=== PATIENT | male | born 1960 | race American Indian/Alaskan Native ===

== ENCOUNTER 2018-05-11 08:13 | Emergency (ER) | payer MEDICAID, SELFPAY ==
[2018-05-11 08:21] VITALS: BP 97/81; PULSE 74; RESP 18; TEMP 36.7; O2SAT 98
--- NOTE | 2018-05-11 08:50 | ED.GENADUL ---
Disposition Clinical Impression: Chronic headache, History of brain aneurysm Disposition: HOME Condition: Stable Instructions: General Headache (ED), Nonruptured Cerebral Aneurysm (GEN) Additional Instructions: Your CAT scan today notes that you do not have any bleeding in your brain. Bleeding in your brain can be seen if you have a ruptured aneurysm. Your CAT scan on 04/23/18 noted a stable aneurysm. Drink plenty of fluids and get plenty of rest. Take your regular medications as directed. Call your neurologist and neurosurgeon at [facility] today to discuss your visit at the emergency department today and for any other recommendations. Follow-up with your scheduled appointment with neurology and neurosurgery at [facility] on 05/16/18. Return immediately to the emergency department with any worsening or new concerning symptoms. Medical Decision Making - Lab Data Laboratory Tests 05/11/18 05/11/18 09:00 09:00 WBC 3.60 L RBC 4.68 Hgb 15.3 Hct 44.0 MCV 94.0 MCH 32.7 MCHC 34.8 RDW 13.7 Plt Count 160 MPV 10.1 Immature Gran % 0.3 Neutrophils % 46.1 Lymphocytes % 41.7 Monocytes % 9.2 Eosinophils % 1.9 Basophils % 0.8 Absolute Neutrophils 1.66 Absolute Lymphocytes 1.50 Absolute Monocytes 0.33 Absolute Eosinophils 0.07 Absolute Basophils 0.03 Sodium 137 Potassium 4.2 Chloride 104 Carbon Dioxide 25.2 Anion Gap 7.8 BUN 17 Creatinine 1.16 Estimated GFR/1.73 m2 >= 60.00 Glucose 88 Calcium 8.8 - Radiology Data Radiology results: report reviewed, image reviewed CT head without contrast: Negative, no hemorrhage. - Medical Decision Making 57-year-old male with multiple ED visits for various complaints with history of R MCA brain aneurysm diagnosed on MRI MRA brain recently and followed by neurology and neurosurgery at [facility] who presents for chronic headaches for several months, worse over the past 2 weeks. Headache is similar in quality and location to previous headaches but more intense, currently 6/10. Headache is in left forehead behind left eye. Patient is also complaining of blurry vision. No focal deficits. Denies nausea and vomiting. Patient was seen here 2 weeks ago and had a CTA head and neck which noted a stable right MCA brain aneurysm. As patient has had no nausea and vomiting, and no focal deficits and appears in no acute distress, doubt rupture at this time. However due to his worsening intensity, will obtain a CT head without contrast to rule out rupture. Originally had ordered a CTA head and neck to assess if aneurysm is stable but this was discussed with radiologist Dr. Graves and recommends a CT head without contrast as the CTA with contrast would obscure bleeding if rupture is the main concern. Also doubts that in 2 weeks, the size of the aneurysm could have grown significantly. Will call [facility] neurology and neurosurgery who patient is followed by with CT head results and patient presentation. 1010 -- Labs reviewed and essentially unremarkable. Leukopenia noted but this is chronic. CT head reviewed and negative. 1025 -- Patient is requesting to go home. Patient states that his headache is much improved and he feels much better and would like to go home. Headache now 12/18. I have received a new consult note from the Epilepsy program at [facility] but assessment and plan never came through the fax machine. The consult note discusses that an MRA of the [place] noted a saccular aneurysm of right M1 segment 6 x 3 mm in diameter. I discussed with patient that I did not receive all the paperwork and have not spoken with [facility] neuro/neurosurgery regarding his visit today and he states this is not necessary and he would like to leave. Patient has a follow-up appointment with them on Wednesday for an angiogram for evaluation for a planned coiling soon. Patient states his headache today is consistent with his usual headaches and now feels much better. History of Present Illness - General Chief complaint: Headache Stated complaint: HEADACHE Time Seen by Provider: 05/11/18 08:30 Source: patient Mode of arrival: ambulatory Limitations: no limitations - History of Present Illness Initial comments: Patient is a 57-year-old male with recently diagnosed with right MCA aneurysm who presents for left-sided headache for the past 2 weeks. Patient states his brain aneurysm was found in March 2018 after an MRI and MRA brain was done due to headaches for several months. Patient states his headache for the past 2 weeks is similar in quality but more intense. Patient states is headache is currently 9/10. Last dose of Motrin and Tylenol last night without relief. Patient states his headache is located in his left forehead and behind his left eye and occasionally in his left neck. States he called his primary care doctor's office last night and they advised him to place ice to his head and neck with relief until the ice [place]. Patient also admits to bilateral blurry vision ?3 days. - Related Data Multivitamin [Multi-Vitamin Daily] 1 each PO DAILY 12/23/16 Clonazepam 1 mg PO BID PRN #60 tab-cap 04/11/18 Divalproex Sodium [Depakote] 250 mg PO TID #90 tab-cap 04/26/18 Allergies Allergy/AdvReac Type Severity Reaction Status Date / Time amitriptyline Allergy Unknown SEDATION,ra Unverified 05/11/18 08:24 sh ranitidine AdvReac Intermediate chest pain Unverified 05/11/18 08:24 acetaminophen [From Vicodin] AdvReac Mild 11/11/17 Unverified 05/11/18 08:24 chest pain upset stomach bisoprolol AdvReac Mild fatigue Unverified 05/11/18 08:24 hydrocodone bitartrate AdvReac Mild 11/11/17 Unverified 05/11/18 08:24 [From Vicodin] chest pain upset stomach nicotine polacrilex AdvReac Mild Skin Rash Unverified 05/11/18 08:24 [From Nicorette] omeprazole AdvReac Unknown Other (See Unverified 05/11/18 08:24 Comment) Review of Systems Constitutional: denies: chills, fever Eyes: vision change. denies: eye pain ENT: denies: ear pain, dental pain Respiratory: denies: cough, shortness of breath Cardiovascular: denies: chest pain, dyspnea on exertion Gastrointestinal: denies: abdominal pain, nausea, vomiting Genitourinary: denies: urgency, dysuria, frequency Musculoskeletal: denies: back pain Skin: denies: rash, lesions Neurological: headache. denies: weakness, numbness Past Medical History - Past Medical History Medical history: COPD, GERD Esophageal spasm, psychogenic nonepileptic seizures, Brain aneurysm Surgical history: other (arm surgery) Family history: CAD/[place] (mother), other (Family history of clots) - Social History Smoking status: current everyday smoker Alcohol use: rarely Drug use: none General Exam - General Limitations: no limitations General appearance: alert, in no apparent distress - Head Head exam: Present: atraumatic, normocephalic - Eye Eye exam: Present: PERRL, EOMI - ENT ENT exam: Present: normal orophraynx, mucous membranes moist, TM's normal bilaterally - Neck Neck exam: Present: normal inspection - Respiratory Respiratory exam: Present: normal lung sounds bilaterally. Absent: respiratory distress, wheezes, rales, rhonchi, stridor - Cardiovascular Cardiovascular Exam: Present: regular rate, normal rhythm. Absent: bradycardia, tachycardia - GI/Abdominal GI/Abdominal exam: Present: soft, normal bowel sounds. Absent: distended, tenderness, guarding, rebound, rigid - Extremities Exam Extremities exam: Present: full ROM - Neurological Exam Neurological exam: Present: alert, oriented X3, CN II-XII intact. Absent: motor sensory deficit - Psychiatric Psychiatric exam: Present: normal affect - Skin Skin exam: Present: warm, dry, intact Course Vital Signs - 24 hr 05/11/ 08:21 Temperature 98.1 F Pulse 74 Respiratory 18 Rate Blood Pressure 97/81 Pulse Oximetry 98
[2018-05-11 09:13] LABS: Abs Immature Grans 0.01 k/cumm (0.0-0.09); Absolute Basophil Count 0.03 k/cumm (0.0-0.2); Absolute Eosinophil Count 0.07 k/cumm (0.0-0.7); Absolute Monocyte Count 0.33 k/cumm (0.11-0.7); Absolute Neutrophil Count 1.66 k/cumm (1.2-6.7); Basophils % 0.8; Eosinophils % 1.9; HGB 15.3 g/dL (13.5-17.5); Immature Grans % 0.3; Lymphocytes % 41.7; Mean Corp. HGB Concentration 34.8 g/dL (32.0-36.0); Mean Corpuscular Hemoglobin 32.7 pg (27.0-33.0); Mean Platelet Volume 10.1 fL (8.0-11.0); Monocytes % 9.2; Neutrophils % 46.1; Platelet Count 160 x1000/uL (130-400); RBC 4.68 m/cumm (4.50-6.00); RBC Distribution Width 13.7 % (11.8-14.1)
[2018-05-11 09:25] LABS: Anion Gap 7.8 mmol/L (3-11); BUN 17 mg/dL (7-18); CO2 25.2 mmol/L (21.0-32.0); CREATININE 1.16 mg/dL (0.70-1.30); Calcium 8.8 mg/dL (8.5-10.1); Chloride 104 mmol/L (98-107); Glucose 88 mg/dL (70-100); Potassium 4.2 mmol/L (3.5-5.1); Sodium 137 mmol/L (136-145)
[2018-05-11] MEDS: Normal Saline 1,000 ML 1000 ML IV (09:25)
[2018-05-11] MEDS: Prochlorperazine 10 MG/2 ML VIAL IVP (09:26)
[2018-05-11] MEDS: Normal Saline Flush 10 ML SYR IVP (09:26)
--- NOTE | 2018-05-11 09:49 | DI.RPTCT_ITS ---
SYMPTOMS/DIAGNOSIS: LT SIDED HEADACHE, H/O BRAIN ANEURYSM, ? RUPTURE CT BRAIN: Noncontrast examination. Comparison 04/23/18. No intracranial hemorrhage, acute midline shift or mass effect is identified. The ventricles are intact. The basilar cisterns are patent. There is a normal damon/white matter differentiation. The calvarium is intact. The visualized paranasal sinuses are clear. The mastoid air cells are well pneumatized. IMPRESSION: No acute intracranial process. The findings were discussed with the emergency department on the date of the examination.
[2018-05-11 10:35] VITALS: BP 102/68; PULSE 65; RESP 16; TEMP 36.7; O2SAT 99
== END 2018-05-11 10:47 | disposition home or self-care (01) ==
PROVIDERS: Emergency Provider Physician Assistant; PCP Nurse Practitioner
DX: R51 Headache (principal); G89.29 Other chronic pain; H53.8 Other visual disturbances; I67.1 Cerebral aneurysm, nonruptured; J44.9 Chronic obstructive pulmonary disease, unspecified; F17.210 Nicotine dependence, cigarettes, uncomplicated
CPT/HCPCS: 36415; 80048; 96361; 96374; 99284; 70450; 85025; 99285; J0780

== ENCOUNTER 2018-05-22 09:18 | Emergency (ER) | payer MEDICAID, SELFPAY ==
[2018-05-22] VITALS (39 sets, daily range): BP systolic 91–135; BP diastolic 53–104; PULSE 52–83; RESP 9–44; TEMP 37.2; O2SAT 96–100
--- NOTE | 2018-05-22 09:49 | DI.RPTCT_ITS ---
SYMPTOMS/DIAGNOSIS: HEADACHE WORSE THIS AM, H/O CHRONIC HEADACHES DUE TO ANEURYSM NONCONTRAST HEAD CT: Comparison is made with 1Aug18. A small amount of fluid is seen in the inferior aspects of both mastoid air cells, unchanged. There is no evidence of bony destruction. The sinuses appear clear. No intracranial hemorrhage, mass or infarct is seen. IMPRESSION: Mild mastoid effusions. No acute intracranial abnormality.
--- NOTE | 2018-05-22 09:49 | DI.REPORT_ITS ---
SYMPTOM/DIAGNOSIS: HEADACHE, DIZZINESS, H/O BRAIN ANEURYSM, R/O ACUTE DISEASE PA AND LATERAL CHEST: Comparison is made with 18 Nov 2017,. The heart size is normal. The lungs are well inflated and clear. No infiltrate, effusion or pneumothorax is seen. IMPRESSION: Negative chest x-ray
--- NOTE | 2018-05-22 10:18 | DI.VRAD_ITS ---
EXAM: CT Head Without Intravenous Contrast EXAM DATE/TIME: 05/22/2018 9:50 AM CLINICAL HISTORY: 58 years old, male; Signs and symptoms; Other: S/P rolled l ankle, R/O acute fracture TECHNIQUE: Axial computed tomography images of the head/brain without intravenous contrast. All CT scans at this facility use at least one of these dose optimization techniques: automated exposure control; mA and/or kV adjustment per patient size (includes targeted exams where dose is matched to clinical indication); or iterative reconstruction. Coronal and sagittal reformatted images were created and reviewed. COMPARISON: CT - HEAD WITHOUT CONTRAST 2018-05-11 09:41 FINDINGS: Brain: Normal. No hemorrhage. No significant white matter disease. No edema. Ventricles: Normal. No ventriculomegaly. Bones/joints: Normal. No acute fracture. Sinuses: Normal as visualized. No acute sinusitis. Mastoid air cells: Fluid in the posterior left mastoid air cells, stable. Compatible with chronic mastoiditis. Soft tissues: Normal. IMPRESSION: 1. No acute intracranial abnormality. 2. Fluid in the posterior left mastoid air cells, stable. Compatible with chronic mastoiditis. Dictated and Authenticated by: Lissette Downs MD. Ordering:STEFAN JO MD
--- NOTE | 2018-05-22 10:22 | ED.GENADUL_ITS ---
Disposition Clinical Impression: Chronic headache, History of brain aneurysm Disposition: HOME Condition: Improving Instructions: General Headache (ED) Additional Instructions: Drink plenty of fluids and get plenty of rest. Follow-up with your scheduled appointment with neurosurgery at [facility] on 06/08. Return to the emergency department any worsening or new concerning symptoms. Medical Decision Making - Lab Data Laboratory Tests 05/22/18 05/22/18 10:35 10:35 WBC 4.18 L RBC 4.70 Hgb 15.3 Hct 44.5 MCV 94.7 MCH 32.6 MCHC 34.4 RDW 13.6 Plt Count 152 MPV 10.5 Immature Gran % 0.2 Neutrophils % 51.8 Lymphocytes % 36.8 Monocytes % 8.6 Eosinophils % 1.9 Basophils % 0.7 Absolute Neutrophils 2.17 Absolute Lymphocytes 1.54 Absolute Monocytes 0.36 Absolute Eosinophils 0.08 Absolute Basophils 0.03 Sodium 140 Potassium 4.5 Chloride 106 Carbon Dioxide 24.6 Anion Gap 9.4 BUN 18 Creatinine 1.10 Estimated GFR/1.73 m2 >= 60.00 Glucose 82 Calcium 8.9 Magnesium 1.8 Total Bilirubin 0.3 AST 12 L ALT 19 Alkaline Phosphatase 62 Troponin I < 0.02 Total Protein 7.5 Albumin 3.5 - Radiology Data Radiology results: report reviewed, image reviewed CT head w/o IV contrast: 1. No acute intracranial abnormality 2. Fluid in the posterior left mastoid air cells, stable. Compatible with chronic mastoiditis. Chest x-ray: Negative - Medical Decision Making 58-year-old male with history of brain aneurysm, seizures, coronary artery disease who presents with acute on chronic headaches today. He has had chronic headaches for several months and is being followed by [facility] neurosurgery who are planning a cranial angiogram on 06/08/18 for further evaluation and possible coiling of his aneurysm. Patient states he has a headache every day and states his headache was slightly less this morning. States his headache is chronically 5/10 and at this morning was 9/10. States his headache currently is at his baseline at 5/10. No focal deficits. Patient states he mainly came here as he was told that his aneurysm has a risk of rupture so he came here to make sure there is no rupture. Patient was seen here recently for the same complaint and was given meds and fluids in the ED and felt much better and was discharged. Patient sent for stat CT head which was negative for bleed. Remainder of labs and imaging reviewed and negative. Chest x-ray negative. This patient still with headache, will give bolus IV fluids, Compazine, Benadryl , Toradol and reassess. 1400 --patient feels much better and states he would like to go home. He denies any significant headache at this time. Patient has a ride home. He was instructed to follow-up with [facility] neurosurgery as directed and return here with any worsening symptoms. History of Present Illness - General Chief complaint: Headache Stated complaint: HEADACHE Time Seen by Provider: 05/22/18 09:46 Source: patient Mode of arrival: ambulatory Limitations: no limitations - History of Present Illness Initial comments: Patient is a 58-year-old male with well-known history of brain aneurysm determined a few months ago has daily headaches who presents with worsening headache this morning. Patient states his headache is in the same location and quality as usual but more intense this morning. Headache is in his frontal region, slightly worse on left today. Patient states headache started worsening after a cup of coffee this morning. States the headache is 9/10 at its worst and currently 5/10. Patient is being followed at [facility] neurosurgery and had a recent appointment for a cranial angiogram but this was rescheduled due to the castro that was supposed to do it broke his hand for 06/08/18. Patient has been eating and drinking well. He admits to chronic blurry vision over several months states is no worse than usual. He denies any nausea or vomiting. - Related Data Multivitamin [Multi-Vitamin Daily] 1 each PO DAILY 12/23/16 Clonazepam 1 mg PO BID PRN #60 tab-cap 04/11/18 Divalproex Sodium [Depakote] 250 mg PO TID #90 tab-cap 04/26/18 Ibuprofen 800 mg PO PRN PRN 05/22/18 Allergies Allergy/AdvReac Type Severity Reaction Status Date / Time amitriptyline Allergy Unknown SEDATION,ra Unverified 05/22/18 09:45 sh ranitidine AdvReac Intermediate chest pain Unverified 05/22/18 09:45 acetaminophen [From Vicodin] AdvReac Mild 11/11/17 Unverified 05/22/18 09:45 chest pain upset stomach bisoprolol AdvReac Mild fatigue Unverified 05/22/18 09:45 hydrocodone bitartrate AdvReac Mild 11/11/17 Unverified 05/22/18 09:45 [From Vicodin] chest pain upset stomach nicotine polacrilex AdvReac Mild Skin Rash Unverified 05/22/18 09:45 [From Nicorette] omeprazole AdvReac Unknown Other (See Unverified 05/22/18 09:45 Comment) Review of Systems Constitutional: denies: chills, fever Eyes: denies: eye pain ENT: denies: ear pain, dental pain Respiratory: denies: cough, shortness of breath Cardiovascular: denies: chest pain, dyspnea on exertion Gastrointestinal: denies: abdominal pain, nausea, vomiting Genitourinary: denies: urgency, dysuria, frequency Musculoskeletal: denies: back pain Skin: denies: rash, lesions Neurological: headache. denies: weakness, numbness Past Medical History - Past Medical History Medical history: COPD, GERD Esophageal spasm, psychogenic nonepileptic seizures, Brain aneurysm Surgical history: other (arm surgery) Family history: CAD/[place] (mother), other (Family history of clots) - Social History Smoking status: current everyday smoker Alcohol use: rarely Drug use: none General Exam - General Limitations: no limitations General appearance: alert, in no apparent distress - Eye Eye exam: Present: PERRL, EOMI - ENT ENT exam: Present: mucous membranes moist - Neck Neck exam: Present: normal inspection - Respiratory Respiratory exam: Present: normal lung sounds bilaterally. Absent: respiratory distress, wheezes, rales, rhonchi, stridor - Cardiovascular Cardiovascular Exam: Present: regular rate, normal rhythm. Absent: bradycardia , tachycardia - GI/Abdominal GI/Abdominal exam: Present: soft, normal bowel sounds. Absent: distended, tenderness, guarding, rebound, rigid - Neurological Exam Neurological exam: Present: alert, oriented X3, CN II-XII intact, other (Muscle strength 5/5 bilateral upper and lower extremities.). Absent: motor sensory deficit - Psychiatric Psychiatric exam: Present: normal affect - Skin Skin exam: Present: warm, dry, intact Course Vital Signs - 24 hr 05/22/18 05/22/18 05/22/18 09:38 09:50 09:51 Temperature 99.0 F Pulse 83 75 Respiratory 15 21 23 Rate Blood Pressure 123/80 121/63 Pulse Oximetry 100 98 97
--- NOTE | 2018-05-22 10:31 | DI.VRAD_ITS ---
EXAM: XR Chest, 2 Views EXAM DATE/TIME: 05/22/2018 9:50 AM CLINICAL HISTORY: 58 years old, male; Signs and symptoms; Other: Headache, dizziness, h/o brain aneurysm, R/O acute disease TECHNIQUE: XR of the chest, 2 views. COMPARISON: CR - CHEST 2 VIEWS PA,LAT 2017-11-18 14:20 FINDINGS: Lungs: Unremarkable. No consolidation. Pleural space: Unremarkable. No pleural effusion. No pneumothorax. Heart/Mediastinum: Unremarkable. No cardiomegaly. Bones/joints: Unremarkable for patient's age. IMPRESSION: No acute findings. Dictated and Authenticated by: Lissette Downs MD. Ordering:STEFAN JO MD
[2018-05-22] MEDS: Normal Saline 1,000 ML 1000 ML IV (10:42)
[2018-05-22 10:43] LABS: Abs Immature Grans 0.01 k/cumm (0.0-0.09); Absolute Basophil Count 0.03 k/cumm (0.0-0.2); Absolute Eosinophil Count 0.08 k/cumm (0.0-0.7); Absolute Lymphocyte Count 1.54 k/cumm (1.2-3.4); Absolute Monocyte Count 0.36 k/cumm (0.11-0.7); Absolute Neutrophil Count 2.17 k/cumm (1.2-6.7); Basophils % 0.7; Eosinophils % 1.9; HCT 44.5 % (40.0-50.0); HGB 15.3 g/dL (13.5-17.5); Immature Grans % 0.2; Lymphocytes % 36.8; Mean Corp. HGB Concentration 34.4 g/dL (32.0-36.0); Mean Corpuscular Hemoglobin 32.6 pg (27.0-33.0); Mean Corpuscular Volume 94.7 fL (80-95); Mean Platelet Volume 10.5 fL (8.0-11.0); Monocytes % 8.6; Neutrophils % 51.8; Platelet Count 152 x1000/uL (130-400); RBC Distribution Width 13.6 % (11.8-14.1); White Blood Cell Count 4.18 k/cumm (4.4-10.8)
[2018-05-22 10:59] LABS: ALT 19 U/L (12-78); AST 12 U/L (15-37); Albumin 3.5 g/dL (3.4-5.0); Alkaline Phosphatase 62 U/L (46-116); Anion Gap 9.4 mmol/L (3-11); BUN 18 mg/dL (7-18); Bilirubin, Total 0.3 mg/dL (0.2-1.0); CO2 24.6 mmol/L (21.0-32.0); Calcium 8.9 mg/dL (8.5-10.1); Chloride 106 mmol/L (98-107); Glucose 82 mg/dL (70-100); Magnesium 1.8 mg/dL (1.8-2.4); Potassium 4.5 mmol/L (3.5-5.1); Sodium 140 mmol/L (136-145); Total Protein 7.5 g/dL (6.4-8.2); Troponin I < 0.02 ng/mL (0.00-0.06)
[2018-05-22] MEDS: Ketorolac 30 MG/ML VIAL IVP (11:43)
[2018-05-22] MEDS: diphenhydrAMINE 50 MG/ML VIAL 25 MG IVP (11:44)
[2018-05-22] MEDS: Prochlorperazine 10 MG/2 ML VIAL IVP (11:47)
[2018-05-22] MEDS: Normal Saline 50 ML 100 ML (11:47)
== END 2018-05-22 14:04 | disposition home or self-care (01) ==
PROVIDERS: Emergency Provider Physician Assistant; PCP Nurse Practitioner
DX: R51 Headache (principal); G89.29 Other chronic pain; I67.1 Cerebral aneurysm, nonruptured; J44.9 Chronic obstructive pulmonary disease, unspecified; F17.210 Nicotine dependence, cigarettes, uncomplicated
CPT/HCPCS: 36415; 80053; 96361; 96374; 96375; 99284; 70450; 71046; 83735; 84484; 85025; J0780; J1200; J1885

== ENCOUNTER → 2018-06-07 09:39 | Outpatient (CLI) | payer MEDICAID, SELFPAY ==
--- NOTE | 2018-06-07 09:50 | DI.REPORT_ITS ---
SYMPTOM/DIAGNOSIS: PREOP, SMOKER, Z01.818 PA AND LATERAL CHEST: Comparison is made with 05/22/18. The heart is normal in size. The lungs are clear. The mediastinal structures and pleura appear intact. CONCLUSION: Normal chest.
[2018-06-07 10:06] LABS: Absolute Basophil Count 0.05 k/cumm (0.0-0.2); Absolute Eosinophil Count 0.06 k/cumm (0.0-0.7); Absolute Lymphocyte Count 1.58 k/cumm (1.2-3.4); Absolute Monocyte Count 0.36 k/cumm (0.11-0.7); Absolute Neutrophil Count 1.51 k/cumm (1.2-6.7); Basophils % 1.4; Eosinophils % 1.7; HCT 44.1 % (40.0-50.0); Lymphocytes % 44.4; Mean Corpuscular Hemoglobin 32.1 pg (27.0-33.0); Mean Corpuscular Volume 94.4 fL (80-95); Monocytes % 10.1; Neutrophils % 42.4; Platelet Count 169 x1000/uL (130-400); RBC 4.67 m/cumm (4.50-6.00); RBC Distribution Width 13.3 % (11.8-14.1); White Blood Cell Count 3.56 k/cumm (4.4-10.8)
[2018-06-07 10:22] LABS: VALPROIC ACID 37.1 ug/mL (50-100)
[2018-06-07 10:39] LABS: Prothrombin Time 9.3 sec (9.3-10.8)
[2018-06-07 11:25] LABS: Anion Gap 5.9 mmol/L (3-11); BUN 15 mg/dL (7-18); CO2 27.1 mmol/L (21.0-32.0); CREATININE 1.08 mg/dL (0.70-1.30); Calcium 9.1 mg/dL (8.5-10.1); Chloride 104 mmol/L (98-107); Glucose 74 mg/dL (70-100); Potassium 4.4 mmol/L (3.5-5.1); Sodium 137 mmol/L (136-145)
== END ==
PROVIDERS: PCP Nurse Practitioner; Visit Provider Nurse Practitioner
DX: Z01.818 Encounter for other preprocedural examination (principal); R79.9 Abnormal finding of blood chemistry, unspecified; R07.89 Other chest pain; F17.200 Nicotine dependence, unspecified, uncomplicated; G40.909 Epilepsy, unspecified, not intractable, without status epilepticus; Z51.81 Encounter for therapeutic drug level monitoring; Z79.899 Other long term (current) drug therapy
CPT/HCPCS: 36415; 80048; 71046; 80164; 85025; 85610

== ENCOUNTER 2018-06-08 16:34 | Emergency (ER) | payer MEDICAID, SELFPAY ==
[2018-06-08] VITALS (8 sets, daily range): BP systolic 110–134; BP diastolic 72–74; PULSE 68–85; RESP 10–19; TEMP 36.6; O2SAT 97–98
--- NOTE | 2018-06-08 16:52 | ED.FU_ITS ---
Care Signed Out By:: Wild - Vital Signs Recent Vitals - 8H: Vital Signs - 8 hr 06/08/18 16:40 Temperature 36.6 C Pulse 85 Respiratory 18 Rate Blood Pressure 134/74 Pulse Oximetry 98 - Continuation of Care Continuation of Care Plan: EKG 16:43 Rate 74, intervals normal, sinus rhythm, no ST elevations or depression. No T- wave inversions. 1 mm Q-wave in lead II, III, and aVF. These findings are consistent with prior EKG from 06/07/18. No acute changes.
--- NOTE | 2018-06-08 17:02 | ED.GENADUL ---
Disposition Clinical Impression: Chest pain, atypical Disposition: HOME Condition: Fair Instructions: Chest Pain (ED) Additional Instructions: Encourage hydration. Stop smoking. Please follow-up with primary care within the next week for reevaluation. If you develop new or worsening symptoms please seek care urgently once again. Keep upcoming appointments Referrals: Wendi Bazzi NP [Primary Care Provider] - Medical Decision Making - Lab Data Laboratory Tests 06/08/18 06/08/18 17:05 17:05 WBC 3.96 L RBC 4.44 L Hgb 14.4 Hct 41.5 MCV 93.5 MCH 32.4 MCHC 34.7 RDW 13.2 Plt Count 166 MPV 9.9 Immature Gran % 0.0 Neutrophils % 48.3 Lymphocytes % 37.6 Monocytes % 11.1 Eosinophils % 2.0 Basophils % 1.0 Absolute Neutrophils 1.91 Absolute Lymphocytes 1.49 Absolute Monocytes 0.44 Absolute Eosinophils 0.08 Absolute Basophils 0.04 Sodium 134 L Potassium 3.5 Chloride 103 Carbon Dioxide 25.6 Anion Gap 5.4 BUN 12 Creatinine 0.99 Estimated GFR/1.73 m2 >= 60.00 Glucose 103 H Calcium 8.6 Magnesium 1.7 L Total Bilirubin 0.6 AST 16 ALT 20 Alkaline Phosphatase 59 Troponin I < 0.02 Total Protein 7.2 Albumin 3.3 L Results reviewed for labs ordered during visit: Yes - Medical Decision Making Patient is presenting today with chief complaint of tingling. Patient reports that this tingling has been going on for the past several years and has waxed and waned. Is not easily reproducible. He reports is unchanged today. However, he was concerned that he had severe left anterior chest pain that lasted for approximately 20 minutes this morning. He was sedentary the time the pain arrived. He did not experience shortness of breath. Pain does not radiate to the back. Rather, he reports the pain radiated up towards the left upper extremity. Cardiac and neuro exams are normal on today's visit. No acute abnormality is noted. Lungs are clear in all aguirre. We will obtain laboratory evaluation including troponin. We will also obtain the echo that was performed today. Patient did have a chest x-ray yesterday without acute abnormality. I do not feel that repeating this today is necessary. EKG was obtained and reviewed by Dr. Alston. He was able to compare this to previous and no acute abnormality was noted, no findings to suggest acute ischemia. Please review his note for further information. Echo report performed today was obtained from [facility]. Summary is as follows: Left ventricle: Cavity was normal size. Wall thickness was normal. Systolic function was normal. The estimated EF is 55-60%. Wall motion was normal, there is no regional wall motion abnormalities. Right ventricle: Cavity size was normal. Wall thickness was normal. Systolic function was normal. Laboratory data evaluation without significant abnormality. His white count was noted to be slightly low but this is unchanged from previous visits. Troponin is less than 0.02. As it has been several hours since his episode of chest pain, do not feel that repeating troponin is necessary at this point. Pain is also easily reproducible with pain over the fifth and sixth ribs at the sternoclavicular junction. I did advise that this may be musculoskeletal. I encouraged hydration. Advised Tylenol as needed for discomfort. Advise follow-up with primary care. We discussed new/worsening symptoms when to seek care urgently once again. All his questions and concerns were addressed and he is in agreement with this plan. History of Present Illness - General Chief complaint: GenMedical Stated complaint: CALEX Time Seen by Provider: 06/08/18 16:40 Source: patient, RN notes reviewed Mode of arrival: EMS Limitations: no limitations - History of Present Illness Initial comments: Patient is a 58-year-old male, well-known to the department, with chief complaint of tingling. Patient is brought in via EMS. Patient has history of anxiety, seizure disorder, tobacco abuse, GERD, atypical chest pain, CAD, COPD, trachea spasms, brain aneurysm. Patient is not anticoagulated. Reports that he has had this tingling waxing and waning for the past several years. Tingling remains unchanged. Reports is primarily in his cheeks, hands, arms and occasionally in his feet. States that he can come on with exertion or when at rest. He does not have any pain associated with this. Reports that it feels like when you are out in the real cold for a long time. Denies any acute change in this tingling sensation. Reports that he also called EMS this morning after having sudden severe left anterior chest pain. States that this chest pain radiated towards the left arm. Reports that the pain came on while he was sedentary. He reports that he checked his oxygen which was 98% at that time, heart rate was in the 1 teens and blood pressure is noted to be 137/89. Reports that the blood pressure had a very concerned as this is higher than his typical. He denies any shortness of breath. He denies any chest pain currently. She went for an echo at [facility] today. Did not experience any chest pain throughout the rest the course of the day. Patient has had extensive medical workups including brain MRI, multiple cardiac workups. Patient is scheduled for clipping of brain aneurysm. It was for this upcoming procedure that he underwent the echocardiogram today. He denies any cough. Reports that his cough has been decreasing as he is cutting back on smoking. He denies any fevers or chills. States that he has chronic nausea but denies any abdominal pain. - Related Data Multivitamin [Multi-Vitamin Daily] 1 each PO DAILY 12/23/16 Clonazepam 1 mg PO BID PRN #60 tab-cap 04/11/18 Divalproex Sodium [Depakote] 250 mg PO TID #90 tab-cap 04/26/18 Ibuprofen 800 mg PO PRN PRN 05/22/18 Allergies Allergy/AdvReac Type Severity Reaction Status Date / Time amitriptyline Allergy Unknown SEDATION,ra Unverified 06/08/18 16:42 sh ranitidine AdvReac Intermediate chest pain Unverified 06/08/18 16:42 acetaminophen [From Vicodin] AdvReac Mild 11/11/17 Unverified 06/08/18 16:42 chest pain upset stomach bisoprolol AdvReac Mild fatigue Unverified 06/08/18 16:42 hydrocodone bitartrate AdvReac Mild 11/11/17 Unverified 06/08/18 16:42 [From Vicodin] chest pain upset stomach nicotine polacrilex AdvReac Mild Skin Rash Unverified 06/08/18 16:42 [From Nicorette] omeprazole AdvReac Unknown Other (See Unverified 06/08/18 16:42 Comment) Review of Systems Constitutional: no symptoms reported Eyes: denies: vision change Respiratory: see HPI, cough (Chronic, improving). denies: shortness of breath, SOB with excertion Cardiovascular: as per HPI, chest pain. denies: palpitations, dyspnea on exertion, syncope Gastrointestinal: as per HPI Musculoskeletal: denies: back pain Skin: denies: rash Neurological: as per HPI, paresthesias (Tingling as described in HPI). denies: headache Past Medical History - Past Medical History Medical history: COPD, GERD Esophageal spasm, psychogenic nonepileptic seizures, Brain aneurysm Surgical history: other (arm surgery) Psychiatric history: anxiety Family history: CAD/UT (mother), other (Family history of clots) - Social History Smoking status: current everyday smoker Alcohol use: rarely Drug use: none General Exam - General Limitations: no limitations General appearance: alert, in no apparent distress - Head Head exam: Present: atraumatic - Eye Eye exam: Present: normal apperance, PERRL, EOMI. Absent: scleral icterus, conjunctival injection, nystagmus Pupils: Present: normal accommodation - ENT ENT exam: Present: normal exam, normal orophraynx, mucous membranes dry - Respiratory Respiratory exam: Present: normal lung sounds bilaterally, chest wall tenderness (Reproducible chest wall tenderness at the sternoclavicular junction between the fifth and sixth ribs.). Absent: respiratory distress, wheezes, rales, rhonchi, accessory muscle use - Cardiovascular Cardiovascular Exam: Present: regular rate, normal rhythm, normal heart sounds - GI/Abdominal GI/Abdominal exam: Present: soft, normal bowel sounds. Absent: distended, tenderness, guarding, rebound - Rectal Rectal exam: Present: deferred - Extremities Exam Extremities exam: Present: normal inspection (5 out of 5 strength equal bilaterally in both the upper and lower extremities. Sensation remains intact in the upper extremities and lower. No saddle paresthesias. 2+ distal pulses in both the upper and lower extremities, equal bilaterally), normal capillary refill. Absent: pedal edema, calf tenderness - Back Exam Back exam: Present: normal inspection - Neurological Exam Neurological exam: Present: alert, CN II-XII intact, normal gait, reflexes normal. Absent: motor sensory deficit - Psychiatric Psychiatric exam: Present: normal affect, normal mood - Skin Skin exam: Present: warm, dry, normal color Course Vital Signs - 24 hr 06/08/18 16:40 Temperature 36.6 C Pulse 85 Respiratory 18 Rate Blood Pressure 134/74 Pulse Oximetry 98
[2018-06-08 17:10] LABS: Absolute Basophil Count 0.04 k/cumm (0.0-0.2); Absolute Eosinophil Count 0.08 k/cumm (0.0-0.7); Absolute Lymphocyte Count 1.49 k/cumm (1.2-3.4); Absolute Monocyte Count 0.44 k/cumm (0.11-0.7); Absolute Neutrophil Count 1.91 k/cumm (1.2-6.7); HCT 41.5 % (40.0-50.0); HGB 14.4 g/dL (13.5-17.5); Lymphocytes % 37.6; Mean Corp. HGB Concentration 34.7 g/dL (32.0-36.0); Mean Corpuscular Hemoglobin 32.4 pg (27.0-33.0); Mean Corpuscular Volume 93.5 fL (80-95); Mean Platelet Volume 9.9 fL (8.0-11.0); Monocytes % 11.1; Neutrophils % 48.3; Platelet Count 166 x1000/uL (130-400); RBC 4.44 m/cumm (4.50-6.00); RBC Distribution Width 13.2 % (11.8-14.1); White Blood Cell Count 3.96 k/cumm (4.4-10.8)
[2018-06-08] MEDS: Normal Saline 1,000 ML 150 ML IV (17:15)
[2018-06-08 17:26] LABS: ALT 20 U/L (12-78); AST 16 U/L (15-37); Albumin 3.3 g/dL (3.4-5.0); Alkaline Phosphatase 59 U/L (46-116); Anion Gap 5.4 mmol/L (3-11); BUN 12 mg/dL (7-18); Bilirubin, Total 0.6 mg/dL (0.2-1.0); CO2 25.6 mmol/L (21.0-32.0); CREATININE 0.99 mg/dL (0.70-1.30); Calcium 8.6 mg/dL (8.5-10.1); Chloride 103 mmol/L (98-107); Glucose 103 mg/dL (70-100); Magnesium 1.7 mg/dL (1.8-2.4); Potassium 3.5 mmol/L (3.5-5.1); Sodium 134 mmol/L (136-145); Total Protein 7.2 g/dL (6.4-8.2)
[2018-06-08 17:28] LABS: Troponin I < 0.02 ng/mL (0.00-0.06)
== END 2018-06-08 17:45 | disposition home or self-care (01) ==
PROVIDERS: Physician Assistant; Emergency Provider Student in an Organized Health Care Education/Training Program; PCP Nurse Practitioner
DX: R07.89 Other chest pain (principal); J44.9 Chronic obstructive pulmonary disease, unspecified; F17.210 Nicotine dependence, cigarettes, uncomplicated
CPT/HCPCS: 36415; 80053; 93005; 99284; 83735; 84484; 85025; 93010

== ENCOUNTER 2018-07-21 12:01 | Emergency (ER) | payer MEDICAID, SELFPAY ==
[2018-07-21 12:05] VITALS: BP 124/71; PULSE 71; RESP 16; TEMP 37.1; O2SAT 124
--- NOTE | 2018-07-21 12:22 | DI.CT_ITS ---
SYMPTOMS/DIAGNOSIS: HEADACHES S/P RECENT ANEURYSM CLIPPED IN CTA OF THE HEAD: CT angiography was performed with multi slice acquisition and multi planar and 3D reconstruction. Comparison is made with April,. The distal internal carotid arteries and vertebral basilar arteries are unremarkable. The patient is status post aneurysm clipping of the previously noted right MCA aneurysm since the previous exam. High density material is seen in this area, creating mild artifact. There is no evidence of vascular occlusion or dissection. There is no contrast extravasation. The patient is now status post right frontal craniotomy. There is a small fluid collection just deep to the craniotomy, measuring 6 mm in thickness. An air bubble is seen within the collection. IMPRESSION: Status post right MCA aneurysm clipping. The aneurysm is not visible. There is a small fluid collection beneath the right frontal craniotomy site containing air. There are no findings specific for infection. NONCONTRAST HEAD CT: Comparison is made with May,. The patient is now status post right frontal craniotomy. The patient is status post right MCA aneurysm clipping. A metallic density is seen in this area. There is residual subdural fluid collection and residual amount of adjacent air in the area of the craniotomy. the collection measures 6mm in thickness by 6cm by 6cm in cephalocaudal and AP dimensions. There is no significant mass effect. No intracranial hemorrhage is seen. IMPRESSION: Small subdural fluid collection in the area of the recent craniotomy. A small amount of air is seen within the fluid collection.
[2018-07-21 12:24] VITALS: BP 107/71; PULSE 68; RESP 16; TEMP 36.8; O2SAT 96
--- NOTE | 2018-07-21 12:29 | W.ED.GENAD ---
Discharge Plan Disposition Patient Disposition: [facility] Condition: Stable Discharge Details Chief Complaint: GenMedical Clinical Impression: Pneumocephalus Primary Care Provider: Wendi Bazzi ED Provider: Clay Chavira Home Meds and New Rx's Prescriptions: No Action multivitamin [Daily Multi-Vitamin] 1 EACH tablet 1 ea PO DAILY RF: 0 clonazepam 1 MG tablet 1 mg PO BID PRNQty: 60 RF: 2 divalproex [Depakote] 250 MG tablet,delayed release (DR/EC) 250 mg PO TID Qty: 90 RF: 3 ibuprofen 800 MG tablet 800 mg PO PRN PRNRF: 0 Discharge Data Discharge Date/Time-TO BE ENTERED AT DEPARTURE: 07/21/18 15:24 Medical Decision Making 58 yo male who underwent brain aneurysm clipping at [facility] in early June comes in with headache and right tmj pain. He has had the pain since the surgery as well as weankess. denies fevers or chills, no vomit. Has no focal neuro deficits on exam, NIH of 0 at this time though is unstead with walking since the surgery. Has full rom of the jaw on exam with no swelling or redness, could have tmj disorder, no evidence of infection, rpa, captain fishing vessel, ludwigs. will image his head to eval for sah or other pathology. no fevers or neck stiffness to suggest ekg manager infection pt remains stable, ct head shows small fluid collection and air pocket per radiology near craniotomy site and cta shows no acute findings. Will discuss case with pt's neurosurgery team spoke with Dr. slaughter from neurosugery who would like the pt transferred to the ED at [facility] for neurosurgery eval. pt remains stable Differential Diagnosis chronic headaches, sah, post surgical pain HPI General Mode of arrival: EMS. Date/Time Provider Initiated Documentation: 07/21/18 12:04. Limitations to Documentation: no limitations. Information obtained by: patient. History of Present Illness 58 year old M presents to the emergency department with the chief complaint of headache and jaw pain, described as moderate, with intensity rated at 4. Quality is described as aching, and is localized to the head. Patient reports no radiation. Patient started experiencing this month(s) (1) and it has been constant. No relieving factors improve symptom(s), No exacerbating factors reported . Patient did receive the following treatments prior to arrival, none Related Data Home Medications Medication Instructions Recorded Confirmed multivitamin [Daily Multi-Vitamin] 1 ea PO DAILY 12/23/16 07/21/18 clonazepam 1 mg PO BID PRN #60 tab-cap 04/11/18 07/21/18 divalproex [Depakote] 250 mg PO TID #90 tab-cap 04/26/18 07/21/18 ibuprofen 800 mg PO PRN PRN 05/22/18 07/21/18 Previous Rx's Medication Instructions Recorded divalproex [Depakote] 250 mg PO TID #90 tab-cap 04/26/18 Allergies Allergy/AdvReac Type Severity Reaction Status Date / Time amitriptyline Allergy Unknown SEDATION,ra Unverified 07/21/18 12:11 sh ranitidine AdvReac Intermediate chest pain Unverified 07/21/18 12:11 acetaminophen [From Vicodin] AdvReac Mild 11/11/17 Unverified 07/21/18 12:11 chest pain upset stomach bisoprolol AdvReac Mild fatigue Unverified 07/21/18 12:11 hydrocodone bitartrate AdvReac Mild 11/11/17 Unverified 07/21/18 12:11 [From Vicodin] chest pain upset stomach nicotine polacrilex AdvReac Mild Skin Rash Unverified 07/21/18 12:11 [From Nicorette] omeprazole AdvReac Unknown Other (See Unverified 07/21/18 12:11 Comment) General Stated Complaint: GenMedical DEVEN: 3 Review of Systems Review of Systems All systems reviewed & are unremarkable except as noted in HPI and below Constitutional Denies chills and Denies fever(s) Eyes Denies loss of vision ENT Denies change in voice Cardiovascular Denies chest pain and Denies dyspnea Respiratory Denies dyspnea Gastrointestinal Denies abdominal pain, Denies nausea and Denies vomiting Genitourinary Denies dysuria Musculoskeletal Denies joint swelling Integumentary/Breasts Denies rash Neurologic Denies loss of vision Psychiatric Denies depression Endocrine Denies cold intolerance and Denies heat intolerance Allergic/Immunologic Reports urticaria PFSH Family History Grandmother Diabetes Mother No problems noted. Father No problems noted. Medical History Testicular mass (Chronic) Disequilibrium (Acute) Cerebral aneurysm (Resolved) Nonerosive esophageal reflux disease Seizure disorder Tobacco use disorder Social History Smoking/Tobacco Use Status: Current every day Surgical History S/P craniotomy (Resolved) EGD (01/21/17) EGD - IV Sedation (05/24/15) EGD [facility] (01/05/18) Removal of foreign body (02/09/10) Repair of inguinal hernia (10/10/67) colonoscopy with cold biopsy (01/21/17) Exam Const General: no acute distress Orientation: alert [facility] Head: other (scalp incision from surgery that is well healed without evidence of erythema or drainage and no pain on exam) Ears: external ears normal General nose exam: external nose normal Mouth: moist mucous membranes Eyes General: appearance normal, both eyes and all related structures Neck Neck: normal visual inspection Resp Effort & Inspection: normal respiratory effort and able to speak in complete sentences Cardio Rate: regular rate Skin General skin exam: no rashes or lesions noted Neuro General: alert and oriented x3 Cognition: normal cognition Speech: speech normal Gait: normal gait Motor: muscle tone normal throughout Sensory Exam: no sensory deficits noted Extrem General: normal to inspection Psych Mental Status: mental status grossly normal Course Vital Signs Temperature 37.1 C 07/21/18 12:05 Pulse 71 07/21/18 12:05 Respiratory Rate 16 07/21/18 12:05 Blood Pressure 124/71 07/21/18 12:05 Pulse Oximetry 124 H 07/21/18 12:05 Temperature 36.8 C 07/21/18 12:24 Temperature Source Temporal Artery Scan 07/21/18 12:24 Pulse 68 07/21/18 12:24 Respiratory Rate 16 07/21/18 12:24 Respiratory Effort Non-Labored 07/21/18 12:14 Respiratory Depth Normal 07/21/18 12:14 Respiratory Pattern Normal 07/21/18 12:14 Blood Pressure 107/71 07/21/18 12:24 Pulse Oximetry 96 07/21/18 12:24 Oxygen Delivery Method Room Air 07/21/18 12:24 Oxygen Flow Rate 0 07/21/18 12:24 Pain Level 9 07/21/18 12:05
--- NOTE | 2018-07-21 12:34 | ED.GENADUL_ITS ---
Discharge Plan Disposition Patient Disposition: [facility] Condition: Stable Discharge Details Chief Complaint: GenMedical Clinical Impression: Pneumocephalus Primary Care Provider: Wendi Bazzi ED Provider: Clay Chavira Home Meds and New Rx's Prescriptions: No Action multivitamin [Daily Multi-Vitamin] 1 EACH tablet 1 ea PO DAILY RF: 0 clonazepam 1 MG tablet 1 mg PO BID PRNQty: 60 RF: 2 divalproex [Depakote] 250 MG tablet,delayed release (DR/EC) 250 mg PO TID Qty: 90 RF: 3 ibuprofen 800 MG tablet 800 mg PO PRN PRNRF: 0 Discharge Data Discharge Date/Time-TO BE ENTERED AT DEPARTURE: 07/21/18 15:24 Medical Decision Making 58 yo male who underwent brain aneurysm clipping at [facility] in early June comes in with headache and right tmj pain. He has had the pain since the surgery as well as weankess. denies fevers or chills, no vomit. Has no focal neuro deficits on exam, NIH of 0 at this time though is unstead with walking since the surgery. Has full rom of the jaw on exam with no swelling or redness, could have tmj disorder, no evidence of infection, rpa, head bellhop captain, ludwigs. will image his head to eval for sah or other pathology. no fevers or neck stiffness to suggest box office attendant infection pt remains stable, ct head shows small fluid collection and air pocket per radiology near craniotomy site and cta shows no acute findings. Will discuss case with pt's neurosurgery team spoke with Dr. slaughter from neurosugery who would like the pt transferred to the ED at [facility] for neurosurgery eval. pt remains stable Differential Diagnosis chronic headaches, sah, post surgical pain HPI General Mode of arrival: EMS . Date/Time Provider Initiated Documentation: 07/21/18 12:04 . Limitations to Documentation: no limitations . Information obtained by: patient . History of Present Illness 58 year old M presents to the emergency department with the chief complaint of headache and jaw pain, described as moderate, with intensity rated at 4. Quality is described as aching, and is localized to the head. Patient reports no radiation. Patient started experiencing this month(s) (1) and it has been constant. No relieving factors improve symptom(s), No exacerbating factors reported . Patient did receive the following treatments prior to arrival, none Related Data Home Medications Medication Instructions Recorded Confirmed multivitamin [Daily Multi-Vitamin] 1 ea PO DAILY 12/23/16 07/21/18 clonazepam 1 mg PO BID PRN #60 tab-cap 04/11/18 07/21/18 divalproex [Depakote] 250 mg PO TID #90 tab-cap 04/26/18 07/21/18 ibuprofen 800 mg PO PRN PRN 05/22/18 07/21/18 Previous Rx's Medication Instructions Recorded divalproex [Depakote] 250 mg PO TID #90 tab-cap 04/26/18 Allergies Allergy/AdvReac Type Severity Reaction Status Date / Time amitriptyline Allergy Unknown SEDATION,ra Unverified 07/21/18 12:11 sh ranitidine AdvReac Intermediate chest pain Unverified 07/21/18 12:11 acetaminophen [From Vicodin] AdvReac Mild 11/11/17 Unverified 07/21/18 12:11 chest pain upset stomach bisoprolol AdvReac Mild fatigue Unverified 07/21/18 12:11 hydrocodone bitartrate AdvReac Mild 11/11/17 Unverified 07/21/18 12:11 [From Vicodin] chest pain upset stomach nicotine polacrilex AdvReac Mild Skin Rash Unverified 07/21/18 12:11 [From Nicorette] omeprazole AdvReac Unknown Other (See Unverified 07/21/18 12:11 Comment) General Stated Complaint: GenMedical DEVEN: 3 Review of Systems Review of Systems All systems reviewed & are unremarkable except as noted in HPI and below Constitutional Denies chills and Denies fever(s) Eyes Denies loss of vision ENT Denies change in voice Cardiovascular Denies chest pain and Denies dyspnea Respiratory Denies dyspnea Gastrointestinal Denies abdominal pain, Denies nausea and Denies vomiting Genitourinary Denies dysuria Musculoskeletal Denies joint swelling Integumentary/Breasts Denies rash Neurologic Denies loss of vision Psychiatric Denies depression Endocrine Denies cold intolerance and Denies heat intolerance Allergic/Immunologic Reports urticaria PFSH Family History Grandmother Diabetes Mother No problems noted. Father No problems noted. Medical History Testicular mass (Chronic) Disequilibrium (Acute) Cerebral aneurysm (Resolved) Nonerosive esophageal reflux disease Seizure disorder Tobacco use disorder Social History Smoking/Tobacco Use Status: Current every day Surgical History S/P craniotomy (Resolved) EGD (01/21/17) EGD - IV Sedation (05/24/15) EGD [facility] (01/05/18) Removal of foreign body (02/09/10) Repair of inguinal hernia (10/10/67) colonoscopy with cold biopsy (01/21/17) Exam Const General: no acute distress Orientation: alert [facility] Head: other (scalp incision from surgery that is well healed without evidence of erythema or drainage and no pain on exam) Ears: external ears normal General nose exam: external nose normal Mouth: moist mucous membranes Eyes General: appearance normal, both eyes and all related structures Neck Neck: normal visual inspection Resp Effort & Inspection: normal respiratory effort and able to speak in complete sentences Cardio Rate: regular rate Skin General skin exam: no rashes or lesions noted Neuro General: alert and oriented x3 Cognition: normal cognition Speech: speech normal Gait: normal gait Motor: muscle tone normal throughout Sensory Exam: no sensory deficits noted Extrem General: normal to inspection Psych Mental Status: mental status grossly normal Course Vital Signs Temperature 37.1 C 07/21/18 12:05 Pulse 71 07/21/18 12:05 Respiratory Rate 16 07/21/18 12:05 Blood Pressure 124/71 07/21/18 12:05 Pulse Oximetry 124 H 07/21/18 12:05 Temperature 36.8 C 07/21/18 12:24 Temperature Source Temporal Artery Scan 07/21/18 12:24 Pulse 68 07/21/18 12:24 Respiratory Rate 16 07/21/18 12:24 Respiratory Effort Non-Labored 07/21/18 12:14 Respiratory Depth Normal 07/21/18 12:14 Respiratory Pattern Normal 07/21/18 12:14 Blood Pressure 107/71 07/21/18 12:24 Pulse Oximetry 96 07/21/18 12:24 Oxygen Delivery Method Room Air 07/21/18 12:24 Oxygen Flow Rate 0 07/21/18 12:24 Pain Level 9 07/21/18 12:05
[2018-07-21] MEDS: Acetaminophen 500 MG TAB 1000 MG PO (12:37)
[2018-07-21 12:43] LABS: Absolute Basophil Count 0.04 k/cumm (0.0-0.2); Absolute Eosinophil Count 0.08 k/cumm (0.0-0.7); Absolute Lymphocyte Count 1.53 k/cumm (1.2-3.4); Absolute Monocyte Count 0.36 k/cumm (0.11-0.7); Absolute Neutrophil Count 2.87 k/cumm (1.2-6.7); Basophils % 0.8; Eosinophils % 1.6; HCT 42.7 % (40.0-50.0); HGB 14.7 g/dL (13.5-17.5); Lymphocytes % 31.4; Mean Corp. HGB Concentration 34.4 g/dL (32.0-36.0); Mean Corpuscular Hemoglobin 32.6 pg (27.0-33.0); Mean Corpuscular Volume 94.7 fL (80-95); Mean Platelet Volume 9.7 fL (8.0-11.0); Monocytes % 7.4; Neutrophils % 58.8; Platelet Count 170 x1000/uL (130-400); RBC 4.51 m/cumm (4.50-6.00); RBC Distribution Width 13.4 % (11.8-14.1); White Blood Cell Count 4.88 k/cumm (4.4-10.8)
[2018-07-21 12:57] LABS: ALT 27 U/L (12-78); AST 17 U/L (15-37); Albumin 3.4 g/dL (3.4-5.0); Alkaline Phosphatase 70 U/L (46-116); Anion Gap 7.5 mmol/L (3-11); BUN 13 mg/dL (7-18); Bilirubin, Total 0.4 mg/dL (0.2-1.0); CO2 25.5 mmol/L (21.0-32.0); CREATININE 0.97 mg/dL (0.70-1.30); Chloride 106 mmol/L (98-107); Glucose 99 mg/dL (70-100); Potassium 3.9 mmol/L (3.5-5.1); Sodium 139 mmol/L (136-145); Total Protein 7.1 g/dL (6.4-8.2)
[2018-07-21] MEDS: Omnipaque 350 MG/ML 100 ML BTL IJ (13:36)
[2018-07-21 14:03] VITALS: BP 108/70; PULSE 66; RESP 18; TEMP 36.8; O2SAT 99
--- NOTE | 2018-07-21 14:56 | NUR.NOTE ---
Verbal report to Agustin GUZMAN in the ED at [facility] Nursing Note:
[2018-07-21 15:31] VITALS: BP 106/80; PULSE 86; RESP 16; TEMP 36.8; O2SAT 99
== END 2018-07-21 15:24 ==
LOC: ER 14:16
PROVIDERS: Emergency Provider Emergency Medicine; PCP Nurse Practitioner
DX: R51 Headache (principal); G93.89 Other specified disorders of brain; Y83.8 Other surgical procedures as the cause of abnormal reaction of the patient, or of later complication, without mention of misadventure at the time of the procedure; J44.9 Chronic obstructive pulmonary disease, unspecified; F17.210 Nicotine dependence, cigarettes, uncomplicated; Z95.828 Presence of other vascular implants and grafts
CPT/HCPCS: 36415; 70496; 80053; 99285; 70450; 85025; J3490

== ENCOUNTER 2018-08-03 19:20 | Emergency (ER) | payer MEDICAID, SELFPAY ==
[2018-08-03 19:36] VITALS: BP 123/84; PULSE 80; RESP 16; TEMP 36.2; O2SAT 94
[2018-08-03] MEDS: Normal Saline 1,000 ML 1000 ML IV (20:14)
[2018-08-03] MEDS: Metoclopramide 10 MG/2 ML VIAL IVP (20:15)
--- NOTE | 2018-08-03 20:53 | W.ED.GENAD ---
Discharge Plan Disposition Patient Disposition: HOME Condition: Stable Discharge Details Chief Complaint: GenMedical Clinical Impression: Hiccups Reason For Visit: hiccups 36 hours Primary Care Provider: Wendi Bazzi ED Provider: [facility] Home Meds and New Rx's Prescriptions: New baclofen 10 mg tablet 10 mg PO TID PRN (Reason: hiccups) Qty: 12 RF: 0 Continue clonazepam 1 mg tablet 1 mg PO BID PRN (Reason: anxiety) Qty: 60 RF: 2 multivitamin [Daily Multi-Vitamin] 1 EACH tablet 1 ea PO DAILY RF: 0 divalproex [Depakote] 250 MG tablet,delayed release (DR/EC) 250 mg PO TID Qty: 90 RF: 3 acetaminophen 325 mg Tablet 325 mg PO Q4H RF: 0 docusate sodium 100 mg Capsule 2 caplet PO BID PRNRF: 0 ondansetron 4 mg Tablet,Disintegrating 4 mg PO Q8H RF: 0 alum-mag hydroxide-simeth 400-400-40 mg/5 mL Suspension 15 ml PO PRN PRNRF: 0 ibuprofen 800 MG tablet 800 mg PO PRN PRNRF: 0 Discharge Instructions Instructions: Hiccups (ED) Additional Instructions: Feel free to return to the emergency department for new or worsening symptoms otherwise follow-up with your primary care provider as needed for reassessment or if not improving Referrals: Wendi Bazzi, SENIOR QUALITATIVE RESEARCHER [Primary Care Provider] - (As needed for reassessment) Discharge Data Discharge Date/Time-TO BE ENTERED AT DEPARTURE: 08/03/18 22:17 Medical Decision Making Patient presenting to the emergency department for chief complaint of hiccups for the past 36 hours. Patient states that on Wednesday he had a surgical procedure that went well but then beginning on Wednesday morning after eating a piece of toast he began having persistent hiccups. He has tried every remedy that was recommended to him by his primary care provider or home health nurse and nothing has worked. Physical exam is unremarkable and no obvious checkup was seen during examination. Given that patient is stating that he is having hiccups he was given Reglan IV with IV fluids otherwise I do not feel any other interventions are needed. Patient observed and I did not physically see patient have any further episodes but patient did state upon reassessment that he did have another episode of hiccuping so patient was ordered baclofen p.o. Patient had resolution of symptoms after receiving baclofen. Patient was prescribed baclofen and encouraged to follow-up with primary care provider or return as needed. HPI General Mode of arrival: ambulatory. Date/Time Provider Initiated Documentation: 08/03/18 19:31. Limitations to Documentation: no limitations. Information obtained by: patient and RN notes reviewed. History of Present Illness 58 year old M presents to the emergency department with the chief complaint of Hiccups, described as severe, with intensity rated at 7. and is localized to the head. Patient started experiencing this day(s) (2) and it has been constant. No relieving factors improve symptom(s), No exacerbating factors reported . Related Data Home Medications Medication Instructions Recorded Confirmed multivitamin [Daily Multi-Vitamin] 1 ea PO DAILY 12/23/16 08/03/18 divalproex [Depakote] 250 mg PO TID #90 tab-cap 04/26/18 08/03/18 ibuprofen 800 mg PO PRN PRN 05/22/18 08/03/18 clonazepam 1 mg tablet 1 mg PO BID PRN #60 tab-cap 07/25/18 08/03/18 acetaminophen 325 mg PO Q4H 08/03/18 08/03/18 alum-mag hydroxide-simeth 15 ml PO PRN PRN 08/03/18 08/03/18 baclofen 10 mg PO TID PRN #12 tab 08/03/18 docusate sodium 2 caplet PO BID PRN 08/03/18 08/03/18 ondansetron 4 mg PO Q8H 08/03/18 08/03/18 Previous Rx's Medication Instructions Recorded divalproex [Depakote] 250 mg PO TID #90 tab-cap 04/26/18 clonazepam 1 mg tablet 1 mg PO BID PRN #60 tab-cap 07/25/18 baclofen 10 mg PO TID PRN #12 tab 08/03/18 Allergies Allergy/AdvReac Type Severity Reaction Status Date / Time amitriptyline Allergy Unknown SEDATION,ra Verified 08/03/18 19:43 sh ranitidine AdvReac Intermediate chest pain Verified 08/03/18 19:43 acetaminophen [From Vicodin] AdvReac Mild 11/11/17 Verified 08/03/18 19:43 chest pain upset stomach bisoprolol AdvReac Mild fatigue Verified 08/03/18 19:43 hydrocodone bitartrate AdvReac Mild 11/11/17 Verified 08/03/18 19:43 [From Vicodin] chest pain upset stomach nicotine polacrilex AdvReac Mild Skin Rash Verified 08/03/18 19:43 [From Nicorette] omeprazole AdvReac Unknown Other (See Verified 08/03/18 19:43 Comment) oxycodone AdvReac Unverified 08/03/18 19:43 General Stated Complaint: GenMedical DEVEN: 3 Review of Systems Constitutional Denies chills and Denies fever(s) ENT Denies sore throat Cardiovascular Reports chest pain Respiratory Denies cough Gastrointestinal Reports as per HPI, Denies abdominal pain, Reports heartburn and Denies vomiting PFSH Family History Grandmother Diabetes Mother No problems noted. Father No problems noted. Medical History Testicular mass (Chronic) Disequilibrium (Acute) Cerebral aneurysm (Resolved) Nonerosive esophageal reflux disease Seizure disorder Tobacco use disorder Social History Smoking/Tobacco Use Status: Current every day Surgical History S/P craniotomy (Resolved) EGD (01/21/17) EGD - IV Sedation (05/24/15) EGD [facility] [place] (01/05/18) Removal of foreign body (02/09/10) Repair of inguinal hernia (10/10/67) colonoscopy with cold biopsy (01/21/17) Exam Const General: cooperative, healthy appearing, comfortable, no acute distress and not ill appearing Nutritional Appearance: average body habitus Orientation: alert, awake and oriented x3 Limitations: mental status not altered Resp Effort & Inspection: normal respiratory effort and able to speak in complete sentences Auscultation: clear to auscultation bilaterally Cardio Rate: regular rate Rhythm: regular rhythm Heart Sounds: S1 normal and S2 normal GI Inspection: normal to inspection Palpation: soft, not firm, no guarding and nontender Neuro General: alert, awake, oriented x3, gait normal, tone normal, moves all extremities and no focal motor deficits Course Vital Signs Temperature 36.2 C L 08/03/18 19:36 Pulse 80 08/03/18 19:36 Respiratory Rate 16 08/03/18 19:36 Blood Pressure 123/84 08/03/18 19:36 Pulse Oximetry 94 L 08/03/18 19:36 Temperature 36.2 C L 08/03/18 19:36 Temperature Source Temporal Artery Scan 08/03/18 19:36 Pulse 80 08/03/18 19:36 Respiratory Rate 16 08/03/18 19:36 Respiratory Effort 08/03/18 19:51 Blood Pressure 123/84 08/03/18 19:36 Pulse Oximetry 94 L 08/03/18 19:36 Oxygen Delivery Method Room Air 08/03/18 19:36 Oxygen Flow Rate 0 08/03/18 19:36
--- NOTE | 2018-08-03 20:59 | ED.GENADUL_ITS ---
Discharge Plan Disposition Patient Disposition: HOME Condition: Stable Discharge Details Chief Complaint: GenMedical Clinical Impression: Hiccups Reason For Visit: hiccups 36 hours Primary Care Provider: Wendi Bazzi ED Provider: [facility] Home Meds and New Rx's Prescriptions: New baclofen 10 mg tablet 10 mg PO TID PRN (Reason: hiccups) Qty: 12 RF: 0 Continue clonazepam 1 mg tablet 1 mg PO BID PRN (Reason: anxiety) Qty: 60 RF: 2 multivitamin [Daily Multi-Vitamin] 1 EACH tablet 1 ea PO DAILY RF: 0 divalproex [Depakote] 250 MG tablet,delayed release (DR/EC) 250 mg PO TID Qty: 90 RF: 3 acetaminophen 325 mg Tablet 325 mg PO Q4H RF: 0 docusate sodium 100 mg Capsule 2 caplet PO BID PRNRF: 0 ondansetron 4 mg Tablet,Disintegrating 4 mg PO Q8H RF: 0 alum-mag hydroxide-simeth 400-400-40 mg/5 mL Suspension 15 ml PO PRN PRNRF: 0 ibuprofen 800 MG tablet 800 mg PO PRN PRNRF: 0 Discharge Instructions Instructions: Hiccups (ED) Additional Instructions: Feel free to return to the emergency department for new or worsening symptoms otherwise follow-up with your primary care provider as needed for reassessment or if not improving Referrals: Wendi Bazzi, PROFESSOR OF PRACTICE [Primary Care Provider] - (As needed for reassessment) Discharge Data Discharge Date/Time-TO BE ENTERED AT DEPARTURE: 08/03/18 22:17 Medical Decision Making Patient presenting to the emergency department for chief complaint of hiccups for the past 36 hours. Patient states that on Wednesday he had a surgical procedure that went well but then beginning on Wednesday morning after eating a piece of toast he began having persistent hiccups. He has tried every remedy that was recommended to him by his primary care provider or home health nurse and nothing has worked. Physical exam is unremarkable and no obvious checkup was seen during examination. Given that patient is stating that he is having hiccups he was given Reglan IV with IV fluids otherwise I do not feel any other interventions are needed. Patient observed and I did not physically see patient have any further episodes but patient did state upon reassessment that he did have another episode of hiccuping so patient was ordered baclofen p.o. Patient had resolution of symptoms after receiving baclofen. Patient was prescribed baclofen and encouraged to follow-up with primary care provider or return as needed. HPI General Mode of arrival: ambulatory . Date/Time Provider Initiated Documentation: 08/03/18 19:31 . Limitations to Documentation: no limitations . Information obtained by: patient and RN notes reviewed . History of Present Illness 58 year old M presents to the emergency department with the chief complaint of Hiccups, described as severe, with intensity rated at 7. and is localized to the head. Patient started experiencing this day(s) (2) and it has been constant. No relieving factors improve symptom(s), No exacerbating factors reported . Related Data Home Medications Medication Instructions Recorded Confirmed multivitamin [Daily Multi-Vitamin] 1 ea PO DAILY 12/23/16 08/03/18 divalproex [Depakote] 250 mg PO TID #90 tab-cap 04/26/18 08/03/18 ibuprofen 800 mg PO PRN PRN 05/22/18 08/03/18 clonazepam 1 mg tablet 1 mg PO BID PRN #60 tab-cap 07/25/18 08/03/18 acetaminophen 325 mg PO Q4H 08/03/18 08/03/18 alum-mag hydroxide-simeth 15 ml PO PRN PRN 08/03/18 08/03/18 baclofen 10 mg PO TID PRN #12 tab 08/03/18 docusate sodium 2 caplet PO BID PRN 08/03/18 08/03/18 ondansetron 4 mg PO Q8H 08/03/18 08/03/18 Previous Rx's Medication Instructions Recorded divalproex [Depakote] 250 mg PO TID #90 tab-cap 04/26/18 clonazepam 1 mg tablet 1 mg PO BID PRN #60 tab-cap 07/25/18 baclofen 10 mg PO TID PRN #12 tab 08/03/18 Allergies Allergy/AdvReac Type Severity Reaction Status Date / Time amitriptyline Allergy Unknown SEDATION,ra Verified 08/03/18 19:43 sh ranitidine AdvReac Intermediate chest pain Verified 08/03/18 19:43 acetaminophen [From Vicodin] AdvReac Mild 11/11/17 Verified 08/03/18 19:43 chest pain upset stomach bisoprolol AdvReac Mild fatigue Verified 08/03/18 19:43 hydrocodone bitartrate AdvReac Mild 11/11/17 Verified 08/03/18 19:43 [From Vicodin] chest pain upset stomach nicotine polacrilex AdvReac Mild Skin Rash Verified 08/03/18 19:43 [From Nicorette] omeprazole AdvReac Unknown Other (See Verified 08/03/18 19:43 Comment) oxycodone AdvReac Unverified 08/03/18 19:43 General Stated Complaint: GenMedical DEVEN: 3 Review of Systems Constitutional Denies chills and Denies fever(s) ENT Denies sore throat Cardiovascular Reports chest pain Respiratory Denies cough Gastrointestinal Reports as per HPI, Denies abdominal pain, Reports heartburn and Denies vomiting PFSH Family History Grandmother Diabetes Mother No problems noted. Father No problems noted. Medical History Testicular mass (Chronic) Disequilibrium (Acute) Cerebral aneurysm (Resolved) Nonerosive esophageal reflux disease Seizure disorder Tobacco use disorder Social History Smoking/Tobacco Use Status: Current every day Surgical History S/P craniotomy (Resolved) EGD (01/21/17) EGD - IV Sedation (05/24/15) [place] [facility] [place] Removal of foreign body (02/09/10) Repair of inguinal hernia (10/10/67) colonoscopy with cold biopsy (01/21/17) Exam Const General: cooperative, healthy appearing, comfortable, no acute distress and not ill appearing Nutritional Appearance: average body habitus Orientation: alert, awake and oriented x3 Limitations: mental status not altered Resp Effort & Inspection: normal respiratory effort and able to speak in complete sentences Auscultation: clear to auscultation bilaterally Cardio Rate: regular rate Rhythm: regular rhythm Heart Sounds: S1 normal and S2 normal GI Inspection: normal to inspection Palpation: soft, not firm, no guarding and nontender Neuro General: alert, awake, oriented x3, gait normal, tone normal, moves all extremities and no focal motor deficits Course Vital Signs Temperature 36.2 C L 08/03/18 19:36 Pulse 80 08/03/18 19:36 Respiratory Rate 16 08/03/18 19:36 Blood Pressure 123/84 08/03/18 19:36 Pulse Oximetry 94 L 08/03/18 19:36 Temperature 36.2 C L 08/03/18 19:36 Temperature Source Temporal Artery Scan 08/03/18 19:36 Pulse 80 08/03/18 19:36 Respiratory Rate 16 08/03/18 19:36 Respiratory Effort 08/03/18 19:51 Blood Pressure 123/84 08/03/18 19:36 Pulse Oximetry 94 L 08/03/18 19:36 Oxygen Delivery Method Room Air 08/03/18 19:36 Oxygen Flow Rate 0 08/03/18 19:36
[2018-08-03] MEDS: Baclofen 10 MG TAB PO (21:08)
[2018-08-03 21:09] VITALS: RESP 16
== END 2018-08-03 22:17 | disposition home or self-care (01) ==
PROVIDERS: Emergency Provider Nurse Practitioner Family; PCP Nurse Practitioner
DX: R06.6 Hiccough (principal)
CPT/HCPCS: 96361; 96374; 99284; J2765

== ENCOUNTER 2018-08-13 19:45 | Emergency (ER) | payer MEDICAID, SELFPAY ==
[2018-08-13 19:47] VITALS: BP 120/75; PULSE 69; RESP 17; TEMP 36.9; O2SAT 98
[2018-08-13 19:58] VITALS: RESP 17
--- NOTE | 2018-08-13 20:05 | DI.RAD_ITS ---
SYMPTOMS/DIAGNOSIS: CHEST PAIN, CONSTIPATION, RECENT ORCHIECTOMY ACUTE ABDOMINAL SERIES: Routine examination was performed. Comparison 10/20/15. PA CHEST; The heart is normal in size. The lungs are clear. The mediastinal structures and pleura appear intact. IMPRESSION: Normal chest. FLAT AND UPRIGHT ABDOMEN: There is a moderately large amount of retained stool throughout the colon. No evidence of bowel obstruction organomegaly or pneumoperitoneum is seen. Degenerative changes are seen in the spine. IMPRESSION: No evidence of an acute abdomen.
--- NOTE | 2018-08-13 20:07 | W.ED.GENAD ---
Discharge Plan Disposition Condition: Stable Discharge Details Chief Complaint: Chest Pain Reason For Visit: LEVY Primary Care Provider: Wendi Bazzi ED Provider: Juan Antonio Ralph Home Meds and New Rx's Prescriptions: No Action clonazepam 1 mg tablet 1 mg PO BID PRN (Reason: anxiety) Qty: 60 RF: 2 multivitamin [Daily Multi-Vitamin] 1 EACH tablet 1 ea PO DAILY RF: 0 divalproex [Depakote] 250 MG tablet,delayed release (DR/EC) 250 mg PO TID Qty: 90 RF: 3 acetaminophen 325 mg Tablet 325 mg PO Q4H RF: 0 docusate sodium 100 mg Capsule 2 caplet PO BID PRNRF: 0 ondansetron 4 mg Tablet,Disintegrating 4 mg PO Q8H RF: 0 alum-mag hydroxide-simeth 400-400-40 mg/5 mL Suspension 15 ml PO PRN PRNRF: 0 baclofen 10 mg tablet 10 mg PO TID PRN (Reason: hiccups) Qty: 12 RF: 0 ibuprofen 800 MG tablet 800 mg PO PRN PRNRF: 0 Medical Decision Making This is a 58-year-old male who presents from home with intermittent episodes of chest discomfort over 3 days time. He does have a history of recurrent chest pain in the past. He also is a smoker. He has had an aneurysm clipping with craniectomy in June and an orchiectomy 2 weeks ago. He arrives with no significant discomfort. Vital signs stable. Differential diagnosis includes gastritis, anxiety, acute coronary syndrome. He did also complain of some intermittent constipation. Patient had blood work obtained, EKG, referred for acute abdominal series. Patient's laboratories are unremarkable including a negative troponin. His x-ray reveals a moderate fecal load without bowel dilatation. He declined antacid administration. Lab Data Lab results reviewed: Yes I reviewed the patient's lab results. Laboratory Tests Range/Units 08/13/18 08/13/18 20:20 20:20 WBC (4.4-10.8) k/cumm 5.04 RBC (4.50-6.00) m/cumm 4.46 L Hgb (13.5-17.5) g/dL 14.3 Hct (40.0-50.0) % 41.5 MCV (80-95) fL 93.0 MCH (27.0-33.0) pg 32.1 MCHC (32.0-36.0) g/dL 34.5 RDW (11.8-14.1) % 13.3 Plt Count (130-400) x1000/uL 196 MPV (8.0-11.0) fL 10.3 Immature Gran % 0.2 Neutrophils % 33.7 Lymphocytes % 54.0 Monocytes % 8.1 Eosinophils % 2.8 Basophils % 1.2 Absolute Neutrophils (1.2-6.7) k/cumm 1.70 Absolute Lymphocytes (1.2-3.4) k/cumm 2.72 Absolute Monocytes (0.11-0.7) k/cumm 0.41 Absolute Eosinophils (0.0-0.7) k/cumm 0.14 Absolute Basophils (0.0-0.2) k/cumm 0.06 Sodium (136-145) mmol/L 138 Potassium (3.5-5.1) mmol/L 4.0 Chloride (98-107) mmol/L 104 Carbon Dioxide (21.0-32.0) mmol/L 23.6 Anion Gap (3-11) mmol/L 10.4 BUN (7-18) mg/dL 19 H Creatinine (0.70-1.30) mg/dL 1.32 H Estimated GFR/1.73 m2 (mL/min/1.73m2) 56.11 Glucose (70-100) mg/dL 100 Calcium (8.5-10.1) mg/dL 9.0 Total Bilirubin (0.2-1.0) mg/dL 0.2 AST (15-37) U/L 14 L ALT (12-78) U/L 25 Alkaline Phosphatase (46-116) U/L 77 Troponin I (0.00-0.06) ng/mL < 0.02 Total Protein (6.4-8.2) g/dL 6.9 Albumin (3.4-5.0) g/dL 3.3 L ECG Data Attestation: I personally reviewed and interpreted this ECG (s) as follows: Interpretation: Normal sinus rhythm, the rate is 70, nonspecific flattening in aVL, Q waves inferiorly HPI General Mode of arrival: EMS. Date/Time Provider Initiated Documentation: 08/13/18 19:54. Limitations to Documentation: no limitations. Information obtained by: patient. History of Present Illness 58 year old M presents to the emergency department with the chief complaint of Chest pain, constipation, described as moderate, Quality is described as aching, and is localized to the chest. Patient started experiencing this day(s) and it has been intermittent. No relieving factors improve symptom(s), No exacerbating factors reported . Patient notes denies cough, fever/chills, headaches, nausea/vomiting and shortness of breath. HPI Narrative: This is a 58-year-old male who presents from home via EMS. He states he has had 3 days of intermittent episodes of substernal chest discomfort that he describes as ache and pressure. It is moderate. It comes and goes. It can last up to an hour at a time. Does not of any ameliorating factors. Similar to previous. He denies nausea, vomiting, fever, chills, leg pain or swelling. He states he had a uneventful craniectomy with aneurysm clipping in June and unilateral orchiectomy 2 weeks ago. He is been eating and drinking with no change of urine output Related Data Home Medications Medication Instructions Recorded Confirmed multivitamin [Daily Multi-Vitamin] 1 ea PO DAILY 12/23/16 08/13/18 divalproex [Depakote] 250 mg PO TID #90 tab-cap 04/26/18 08/13/18 ibuprofen 800 mg PO PRN PRN 05/22/18 08/13/18 clonazepam 1 mg tablet 1 mg PO BID PRN #60 tab-cap 07/25/18 08/13/18 acetaminophen 325 mg PO Q4H 08/03/18 08/13/18 alum-mag hydroxide-simeth 15 ml PO PRN PRN 08/03/18 08/13/18 baclofen 10 mg PO TID PRN #12 tab 08/03/18 08/13/18 docusate sodium 2 caplet PO BID PRN 08/03/18 08/13/18 ondansetron 4 mg PO Q8H 08/03/18 08/13/18 Previous Rx's Medication Instructions Recorded divalproex [Depakote] 250 mg PO TID #90 tab-cap 04/26/18 clonazepam 1 mg tablet 1 mg PO BID PRN #60 tab-cap 07/25/18 baclofen 10 mg PO TID PRN #12 tab 08/03/18 Allergies Allergy/AdvReac Type Severity Reaction Status Date / Time amitriptyline Allergy Unknown SEDATION,ra Verified 08/13/18 20:01 sh ranitidine AdvReac Intermediate chest pain Verified 08/13/18 20:01 acetaminophen [From Vicodin] AdvReac Mild 11/11/17 Verified 08/13/18 20:01 chest pain upset stomach bisoprolol AdvReac Mild fatigue Verified 08/13/18 20:01 hydrocodone bitartrate AdvReac Mild 11/11/17 Verified 08/13/18 20:01 [From Vicodin] chest pain upset stomach nicotine polacrilex AdvReac Mild Skin Rash Verified 08/13/18 20:01 [From Nicorette] omeprazole AdvReac Unknown Other (See Verified 08/13/18 20:01 Comment) oxycodone AdvReac Unverified 08/13/18 20:01 General Stated Complaint: Chest Pain DEVEN: 3 Review of Systems Review of Systems 6 systems reviewed and otherwise negative [facility] Family History Grandmother Diabetes Mother No problems noted. Father No problems noted. Medical History Testicular mass (Chronic) Disequilibrium (Acute) Cerebral aneurysm (Resolved) Nonerosive esophageal reflux disease Seizure disorder Tobacco use disorder Social History Smoking/Tobacco Use Status: Current every day Surgical History S/P craniotomy (Resolved) EGD (01/21/17) EGD - IV Sedation (05/24/15) [place] [facility] [place]) Removal of foreign body (02/09/10) Repair of inguinal hernia (10/10/67) colonoscopy with cold biopsy (01/21/17) Exam Narrative Exam Narrative: GEN: awake, alert, oriented 3. Pleasant, well groomed, interactive. HEAD: Normocephalic, atraumatic ENT: Mucous membranes moist, oropharynx unremarkable, External ear exam unremarkable EYES: PERRL, EOMI NECK: Full ROM, no EVE, no menigismus CHEST/RESP: Nontender, clear to auscultation bilateral, no wheeze/rhonchi/rales CARDIOVASCULAR: RRR, no murmur, rub josias. 2+ Rad pulse bilateral ABDOMEN: Soft, nontender, no mass. +Bowel sounds EXT: Full ROM, no edema, no rash Neuro: Grossly normal neurologic exam, conversant, interactive. Psych: Speech fluent, thoughts congruent, affect normal Course Vital Signs Temperature 36.9 C 08/13/18 19:47 Pulse 69 08/13/18 19:47 Respiratory Rate 17 08/13/18 19:47 Blood Pressure 120/75 08/13/18 19:47 Pulse Oximetry 98 08/13/18 19:47 Temperature 36.9 C 08/13/18 19:47 Temperature Source Temporal Artery Scan 08/13/18 19:47 Pulse 69 08/13/18 19:47 Respiratory Rate 17 08/13/18 19:58 Respiratory Effort 08/13/18 19:58 Respiratory Depth Normal 08/13/18 19:58 Respiratory Pattern Normal 08/13/18 19:58 Blood Pressure 120/75 08/13/18 19:47 Pulse Oximetry 98 08/13/18 19:47 Oxygen Delivery Method Room Air 08/13/18 19:47 Oxygen Flow Rate 0 08/13/18 19:47 Pain Level 6 08/13/18 19:58
--- NOTE | 2018-08-13 20:12 | ED.GENADUL_ITS ---
Discharge Plan Disposition Condition: Stable Discharge Details Chief Complaint: Chest Pain Reason For Visit: LEVY Primary Care Provider: Wendi Bazzi ED Provider: Juan Antonio Ralph Home Meds and New Rx's Prescriptions: No Action clonazepam 1 mg tablet 1 mg PO BID PRN (Reason: anxiety) Qty: 60 RF: 2 multivitamin [Daily Multi-Vitamin] 1 EACH tablet 1 ea PO DAILY RF: 0 divalproex [Depakote] 250 MG tablet,delayed release (DR/EC) 250 mg PO TID Qty: 90 RF: 3 acetaminophen 325 mg Tablet 325 mg PO Q4H RF: 0 docusate sodium 100 mg Capsule 2 caplet PO BID PRNRF: 0 ondansetron 4 mg Tablet,Disintegrating 4 mg PO Q8H RF: 0 alum-mag hydroxide-simeth 400-400-40 mg/5 mL Suspension 15 ml PO PRN PRNRF: 0 baclofen 10 mg tablet 10 mg PO TID PRN (Reason: hiccups) Qty: 12 RF: 0 ibuprofen 800 MG tablet 800 mg PO PRN PRNRF: 0 Medical Decision Making This is a 58-year-old male who presents from home with intermittent episodes of chest discomfort over 3 days time. He does have a history of recurrent chest pain in the past. He also is a smoker. He has had an aneurysm clipping with craniectomy in June and an orchiectomy 2 weeks ago. He arrives with no significant discomfort. Vital signs stable. Differential diagnosis includes gastritis, anxiety, acute coronary syndrome. He did also complain of some intermittent constipation. Patient had blood work obtained, EKG, referred for acute abdominal series. Patient's laboratories are unremarkable including a negative troponin. His x- ray reveals a moderate fecal load without bowel dilatation. He declined antacid administration. Lab Data Lab results reviewed: Yes I reviewed the patient's lab results. Laboratory Tests Range/Units 08/13/18 08/13/18 20:20 20:20 WBC (4.4-10.8) k/cumm 5.04 RBC (4.50-6.00) m/cumm 4.46 L Hgb (13.5-17.5) g/dL 14.3 Hct (40.0-50.0) % 41.5 MCV (80-95) fL 93.0 MCH (27.0-33.0) pg 32.1 MCHC (32.0-36.0) g/dL 34.5 RDW (11.8-14.1) % 13.3 Plt Count (130-400) x1000/uL 196 MPV (8.0-11.0) fL 10.3 Immature Gran % 0.2 Neutrophils % 33.7 Lymphocytes % 54.0 Monocytes % 8.1 Eosinophils % 2.8 Basophils % 1.2 Absolute Neutrophils (1.2-6.7) k/cumm 1.70 Absolute Lymphocytes (1.2-3.4) k/cumm 2.72 Absolute Monocytes (0.11-0.7) k/cumm 0.41 Absolute Eosinophils (0.0-0.7) k/cumm 0.14 Absolute Basophils (0.0-0.2) k/cumm 0.06 Sodium (136-145) mmol/L 138 Potassium (3.5-5.1) mmol/L 4.0 Chloride (98-107) mmol/L 104 Carbon Dioxide (21.0-32.0) mmol/L 23.6 Anion Gap (3-11) mmol/L 10.4 BUN (7-18) mg/dL 19 H Creatinine (0.70-1.30) mg/dL 1.32 H Estimated GFR/1.73 m2 (mL/min/1.73m2) 56.11 Glucose (70-100) mg/dL 100 Calcium (8.5-10.1) mg/dL 9.0 Total Bilirubin (0.2-1.0) mg/dL 0.2 AST (15-37) U/L 14 L ALT (12-78) U/L 25 Alkaline Phosphatase (46-116) U/L 77 Troponin I (0.00-0.06) ng/mL < 0.02 Total Protein (6.4-8.2) g/dL 6.9 Albumin (3.4-5.0) g/dL 3.3 L ECG Data Attestation: I personally reviewed and interpreted this ECG (s) as follows: Interpretation: Normal sinus rhythm, the rate is 70, nonspecific flattening in aVL, Q waves inferiorly HPI General Mode of arrival: EMS . Date/Time Provider Initiated Documentation: 08/13/18 19:54 . Limitations to Documentation: no limitations . Information obtained by: patient . History of Present Illness 58 year old M presents to the emergency department with the chief complaint of Chest pain, constipation, described as moderate, Quality is described as aching, and is localized to the chest. Patient started experiencing this day (s) and it has been intermittent. No relieving factors improve symptom(s), No exacerbating factors reported . Patient notes denies cough, fever/chills , headaches, nausea/vomiting and shortness of breath. HPI Narrative: This is a 58-year-old male who presents from home via EMS. He states he has had 3 days of intermittent episodes of substernal chest discomfort that he describes as ache and pressure. It is moderate. It comes and goes. It can last up to an hour at a time. Does not of any ameliorating factors. Similar to previous. He denies nausea, vomiting, fever, chills, leg pain or swelling. He states he had a uneventful craniectomy with aneurysm clipping in June and unilateral orchiectomy 2 weeks ago. He is been eating and drinking with no change of urine output Related Data Home Medications Medication Instructions Recorded Confirmed multivitamin [Daily Multi-Vitamin] 1 ea PO DAILY 12/23/16 08/13/18 divalproex [Depakote] 250 mg PO TID #90 tab-cap 04/26/18 08/13/18 ibuprofen 800 mg PO PRN PRN 05/22/18 08/13/18 clonazepam 1 mg tablet 1 mg PO BID PRN #60 tab-cap 07/25/18 08/13/18 acetaminophen 325 mg PO Q4H 08/03/18 08/13/18 alum-mag hydroxide-simeth 15 ml PO PRN PRN 08/03/18 08/13/18 baclofen 10 mg PO TID PRN #12 tab 08/03/18 08/13/18 docusate sodium 2 caplet PO BID PRN 08/03/18 08/13/18 ondansetron 4 mg PO Q8H 08/03/18 08/13/18 Previous Rx's Medication Instructions Recorded divalproex [Depakote] 250 mg PO TID #90 tab-cap 04/26/18 clonazepam 1 mg tablet 1 mg PO BID PRN #60 tab-cap 07/25/18 baclofen 10 mg PO TID PRN #12 tab 08/03/18 Allergies Allergy/AdvReac Type Severity Reaction Status Date / Time amitriptyline Allergy Unknown SEDATION,ra Verified 08/13/18 20:01 sh ranitidine AdvReac Intermediate chest pain Verified 08/13/18 20:01 acetaminophen [From Vicodin] AdvReac Mild 11/11/17 Verified 08/13/18 20:01 chest pain upset stomach bisoprolol AdvReac Mild fatigue Verified 08/13/18 20:01 hydrocodone bitartrate AdvReac Mild 11/11/17 Verified 08/13/18 20:01 [From Vicodin] chest pain upset stomach nicotine polacrilex AdvReac Mild Skin Rash Verified 08/13/18 20:01 [From Nicorette] omeprazole AdvReac Unknown Other (See Verified 08/13/18 20:01 Comment) oxycodone AdvReac Unverified 08/13/18 20:01 General Stated Complaint: Chest Pain DEVEN: 3 Review of Systems Review of Systems 6 systems reviewed and otherwise negative [facility] Family History Grandmother Diabetes Mother No problems noted. Father No problems noted. Medical History Testicular mass (Chronic) Disequilibrium (Acute) Cerebral aneurysm (Resolved) Nonerosive esophageal reflux disease Seizure disorder Tobacco use disorder Social History Smoking/Tobacco Use Status: Current every day Surgical History S/P craniotomy (Resolved) EGD (01/21/17) EGD - IV Sedation (05/24/15) [place] [facility] [place] Removal of foreign body (02/09/10) Repair of inguinal hernia (10/10/67) colonoscopy with cold biopsy (01/21/17) Exam Narrative Exam Narrative: GEN: awake, alert, oriented 3. Pleasant, well groomed, interactive. HEAD: Normocephalic, atraumatic ENT: Mucous membranes moist, oropharynx unremarkable, External ear exam unremarkable EYES: PERRL, EOMI NECK: Full ROM, no EVE, no menigismus CHEST/RESP: Nontender, clear to auscultation bilateral, no wheeze/rhonchi/rales CARDIOVASCULAR: RRR, no murmur, rub josias. 2+ Rad pulse bilateral ABDOMEN: Soft, nontender, no mass. +Bowel sounds EXT: Full ROM, no edema, no rash Neuro: Grossly normal neurologic exam, conversant, interactive. Psych: Speech fluent, thoughts congruent, affect normal Course Vital Signs Temperature 36.9 C 08/13/18 19:47 Pulse 69 08/13/18 19:47 Respiratory Rate 17 08/13/18 19:47 Blood Pressure 120/75 08/13/18 19:47 Pulse Oximetry 98 08/13/18 19:47 Temperature 36.9 C 08/13/18 19:47 Temperature Source Temporal Artery Scan 08/13/18 19:47 Pulse 69 08/13/18 19:47 Respiratory Rate 17 08/13/18 19:58 Respiratory Effort 08/13/18 19:58 Respiratory Depth Normal 08/13/18 19:58 Respiratory Pattern Normal 08/13/18 19:58 Blood Pressure 120/75 08/13/18 19:47 Pulse Oximetry 98 08/13/18 19:47 Oxygen Delivery Method Room Air 08/13/18 19:47 Oxygen Flow Rate 0 08/13/18 19:47 Pain Level 6 08/13/18 19:58
[2018-08-13 20:29] LABS: Abs Immature Grans 0.01 k/cumm (0.0-0.09); Absolute Basophil Count 0.06 k/cumm (0.0-0.2); Absolute Eosinophil Count 0.14 k/cumm (0.0-0.7); Absolute Lymphocyte Count 2.72 k/cumm (1.2-3.4); Absolute Monocyte Count 0.41 k/cumm (0.11-0.7); Basophils % 1.2; Eosinophils % 2.8; HCT 41.5 % (40.0-50.0); HGB 14.3 g/dL (13.5-17.5); Immature Grans % 0.2; Mean Corp. HGB Concentration 34.5 g/dL (32.0-36.0); Mean Corpuscular Hemoglobin 32.1 pg (27.0-33.0); Mean Platelet Volume 10.3 fL (8.0-11.0); Monocytes % 8.1; Neutrophils % 33.7; Platelet Count 196 x1000/uL (130-400); RBC 4.46 m/cumm (4.50-6.00); RBC Distribution Width 13.3 % (11.8-14.1); White Blood Cell Count 5.04 k/cumm (4.4-10.8)
--- NOTE | 2018-08-13 20:44 | DI.VRAD_ITS ---
EXAM: XR Abdomen 2 Views with XR Chest 1 View EXAM DATE/TIME: 08/13/2018 8:07 PM CLINICAL HISTORY: 58 years old, male; Signs and symptoms; Constipation; Patient HX: Chest pain, constipation; Additional info: Recent orchiectomy TECHNIQUE: XR of the abdomen (2 views) with XR chest (1 view). COMPARISON: CR CHEST 2 VIEWS PA,LAT 06/07/2018 9:39 AM FINDINGS: Lungs: Normal. No consolidation. Pleural space: Normal. No pneumothorax. Heart/Mediastinum: Normal. No cardiomegaly. Gastrointestinal tract: Moderate fecal load within the ascending colon. Small amount of fecal matter and air within the transverse and descending colon. Minimal gas within the rectosigmoid colon. No bowel dilation. Intraperitoneal space: Normal. No free air. Bones/joints: No acute fracture. Soft tissues: Normal. IMPRESSION: No acute findings. Dictated and Authenticated by: Kaden Cenetno MD. Ordering:PAYAL HUITRON MD
[2018-08-13 20:47] LABS: ALT 25 U/L (12-78); AST 14 U/L (15-37); Albumin 3.3 g/dL (3.4-5.0); Alkaline Phosphatase 77 U/L (46-116); Anion Gap 10.4 mmol/L (3-11); BUN 19 mg/dL (7-18); Bilirubin, Total 0.2 mg/dL (0.2-1.0); CO2 23.6 mmol/L (21.0-32.0); CREATININE 1.32 mg/dL (0.70-1.30); Chloride 104 mmol/L (98-107); Estimated GFR 56.11 (mL/min/1.73m2); Glucose 100 mg/dL (70-100); Sodium 138 mmol/L (136-145); Total Protein 6.9 g/dL (6.4-8.2); Troponin I < 0.02 ng/mL (0.00-0.06)
[2018-08-13 20:54] LABS: Bilirubin Negative (Negative); Blood Negative (Negative); Clarity Clear; Glucose Negative (Negative); Ketones Negative (Negative); Leukocyte Esterase Negative (Negative); Nitrite Negative (Negative); Urobilinogen 0.2 EU/dL (Up TO 0.2)
[2018-08-13] MEDS: Mylanta Suspension 30 ML CUP PO (21:00)
[2018-08-13 21:08] VITALS: BP 117/74; PULSE 75; RESP 16; O2SAT 99
== END 2018-08-13 21:03 | disposition home or self-care (01) ==
PROVIDERS: Emergency Provider Emergency Medicine; PCP Nurse Practitioner
DX: R07.89 Other chest pain (principal); I25.10 Atherosclerotic heart disease of native coronary artery without angina pectoris; J44.9 Chronic obstructive pulmonary disease, unspecified; F17.210 Nicotine dependence, cigarettes, uncomplicated
CPT/HCPCS: 36415; 80053; 93005; 99284; 74022; 81003; 84484; 85025; 93010

== ENCOUNTER 2018-08-23 12:08 | Outpatient (CLI) | payer MEDICAID, SELFPAY ==
[2018-08-26 11:48] LABS: Testosterone, Free 12.3 ng/dL (3.87-14.7); Testosterone, Total 879 ng/dL (240-950)
== END 2018-08-23 12:28 ==
PROVIDERS: PCP Nurse Practitioner; Visit Provider Nurse Practitioner
DX: N50.9 Disorder of male genital organs, unspecified (principal)
CPT/HCPCS: 36415; 84402; 84403

== ENCOUNTER 2018-09-30 02:37 | Outpatient (CLI) | payer MEDICAID, SELFPAY | END 2018-09-30 02:57 | PROVIDERS: PCP Nurse Practitioner; Visit Provider Nurse Practitioner | DX: I49.9 Cardiac arrhythmia, unspecified (principal); Z53.8 Procedure and treatment not carried out for other reasons ==

== ENCOUNTER 2018-10-13 02:47 | Outpatient (CLI) | payer MEDICAID, SELFPAY ==
[2018-10-13] MEDS: Inhaler, Assist Device 1 EACH MC (09:08)
[2018-10-13] MEDS: Albuterol HFA 18 GM 200 PUFF INH IH (09:09)
--- NOTE | 2018-10-17 10:47 | HOLTER_ITS ---
HOLTER MONITOR INTERPRETATION DATE OF DICTATION October 17, 2018 INTERPRETATION Baseline rhythm sinus. Rare single PAC. Single bursts SVT, 3 beat duration at 118 beats per minute. No atrial fibrillation. Rare single PVC. No VT. Nocturnal heart rates as low as 50-55 beats per minute, sinus bradycardia. Single 3.03 second pause noted, 1206, asymptomatic. SYMPTOMS No symptoms. Average heart rate 77 beats per minute. Clay Jalloh M.D. CARLOS/bhavana T - 10/17/2018
== END 2018-10-13 03:07 ==
PROVIDERS: PCP Nurse Practitioner; Visit Provider Nurse Practitioner
DX: R06.02 Shortness of breath (principal); I47.1 Supraventricular tachycardia; R00.1 Bradycardia, unspecified
CPT/HCPCS: 94060; 94150; 94726; 94729; 93225

== ENCOUNTER 2018-10-13 02:48 | Outpatient (CLI) | payer MEDICAID, SELFPAY ==
--- NOTE | 2018-10-13 | PFT_ITS ---
PULMONARY FUNCTION TEST REPORT DATE OF DICTATION October 17, 2018 Patient identification - Kike Rodriguez DATE OF - 64 DATE OF SERVICE - October 13, 2018 REQUESTING PROVIDER - Wendi Bazzi NP INTERPRETATION OF STUDY Spirometry shows borderline mild obstructive airways disease, may represent normal variant. No significant bronchodilator response. LUNG VOLUMES - Lung volumes no evidence of restriction. DIFFUSION CAPACITY- Borderline mildly reduced even when corrected to alveolar volume. AIRWAY RESISTANCE - Normal. IMPRESSION Borderline mild obstructive airways disease which may represent a normal variant. No significant bronchodilator response, there is borderline mild diffusion defect. When this study was compared to previous ones from 08/28/09, 05/11/14, 01/20/16 and 08/06/16, the patient has an overall stable diffusion capacity. FVC has been overall again stable with a mild decline of a total of 370 cc. FEV1 has an overall decline of 490 cc, but again overall fairly stable. Shaista Bar M.D. SARAN/bhavana T - 10/17/2018
== END 2018-10-13 03:08 ==
PROVIDERS: PCP Nurse Practitioner; Visit Provider Nurse Practitioner
DX: R06.02 Shortness of breath (principal); I49.9 Cardiac arrhythmia, unspecified

== ENCOUNTER 2018-10-15 14:09 | Outpatient (CLI) | payer MEDICAID, SELFPAY | END 2018-10-15 14:29 | PROVIDERS: PCP Nurse Practitioner; Visit Provider Nurse Practitioner | DX: R06.02 Shortness of breath (principal); I47.1 Supraventricular tachycardia; R00.1 Bradycardia, unspecified | CPT/HCPCS: 93226 ==

== ENCOUNTER 2018-11-14 12:08 | Emergency (ER) | payer MEDICAID, SELFPAY ==
[2018-11-14 12:15] VITALS: BP 122/82; PULSE 88; RESP 16; TEMP 36.7; O2SAT 98
--- NOTE | 2018-11-14 13:03 | DI.CT_ITS ---
SYMPTOM/DIAGNOSIS: HEADACHE, H/O RT SIDED ANEURYSM, CLIPPED 06/15/[address]: Comparison is made with 07/21/18. Right temporal and right frontal craniotomy defects are again noted. Aneurysm clip creates artifact. There has been re- absorption of the previously noted small subdural fluid collection and air. No acute hemorrhage, mass or acute infarct is seen. The ventricles are normal in size. The sinuses and mastoid air cells appear clear. IMPRESSION: Previous aneurysm clipping and right temporal and right frontal craniotomies. No acute abnormality is seen.
--- NOTE | 2018-11-14 15:15 | W.ED.GENAD ---
Discharge Plan Disposition Patient Disposition: HOME Condition: Stable Discharge Details Chief Complaint: Headache Clinical Impression: Headache, Disequilibrium Primary Care Provider: Wendi Bazzi ED Provider: Chevy Ace Home Meds and New Rx's Prescriptions: Continued clonazepam 1 mg tablet 1 mg PO TID PRN (Reason: anxiety) Qty: 90 RF: 2 multivitamin [Daily Multi-Vitamin] 1 EACH tablet 1 ea PO DAILY RF: 0 acetaminophen 325 mg Tablet 500 mg PO Q4H RF: 0 docusate sodium 100 mg Capsule 2 caplet PO BID PRNRF: 0 ondansetron 4 mg Tablet,Disintegrating 4 mg PO Q8H RF: 0 alum-mag hydroxide-simeth 400-400-40 mg/5 mL Suspension 15 ml PO PRN PRNRF: 0 baclofen 10 mg tablet 10 mg PO TID PRN (Reason: hiccups) Qty: 12 RF: 0 ibuprofen 800 MG tablet 800 mg PO PRN PRNRF: 0 divalproex [Depakote] 250 MG tablet,delayed release (DR/EC) 250 mg PO BID RF: 0 Discharge Instructions Instructions: General Headache (ED) Additional Instructions: Feel free to return to the emergency department for any new or worsening symptoms or any other concerns otherwise follow recommendations from your other providers and take medication as previously prescribed Referrals: Wendi Bazzi, [facility] [Primary Care Provider] - (As needed for reassessment or previously arranged) Discharge Data Discharge Date/Time-TO BE ENTERED AT DEPARTURE: 11/14/18 15:24 Medical Decision Making Patient presenting to the emergency department for chief complaint of headache and feeling off balance. Patient reports the symptoms have been going on since his aneurysm clipping at [facility] months ago. Patient is well familiar to myself as I have seen him in the past and symptoms are not dissimilar to other visits that patient has had. Patient states that he is called his neurologist in [place] who recommended he come to the emergency department for CT scan of head due to previous aneurysm with clipping and concern for possible emergent changes. Patient denies any nausea vomiting, fever chills, states ongoing chronic hearing problems but no acute changes. Physical exam is unremarkable and completely benign. Patient states that he took acetaminophen prior to the emergency department and reports he is mainly here due to recommendation of head CT. Given medical history of aneurysm with clipping I do feel it is reasonable to check for any acute changes but given patient's ongoing chronic history of headaches and that this is not had any significant rapid change and exam is unremarkable I feel this may be more chronic in nature. I do not feel that labs are warranted at this time. Head CT reviewed with radiologist and shows no acute changes or findings. Patient is fully ambulatory with no acute neurological neurological change on examination or on report by patient. Given this I feel that patient follow-up should follow-up with his neurologist or return to ED as needed. After discussion of diagnosis and plan of care patient and significant other have no further needs, questions, or concerns and states clear understanding to return to the emergency department for any worsening symptoms or any other concerns they may have. HPI General Mode of arrival: ambulatory. Date/Time Provider Initiated Documentation: 11/14/18 12:21. Limitations to Documentation: no limitations. Information obtained by: patient and RN notes reviewed. History of Present Illness 58 year old M presents to the emergency department with the chief complaint of headache, described as moderate, with intensity rated at 6. Quality is described as aching, and is localized to the head. Patient started experiencing this month(s) and it has been intermittent. Medication improves symptom(s), (Acetaminophen) No exacerbating factors reported . Patient did receive the following treatments prior to arrival, other (Acetaminophen) Related Data Home Medications Medication Instructions Recorded Confirmed multivitamin [Daily Multi-Vitamin] 1 ea PO DAILY 12/23/16 11/14/18 ibuprofen 800 mg PO PRN PRN 05/22/18 11/14/18 acetaminophen 500 mg PO Q4H 08/03/18 11/14/18 alum-mag hydroxide-simeth 15 ml PO PRN PRN 08/03/18 11/14/18 baclofen 10 mg PO TID PRN #12 tab 08/03/18 11/14/18 docusate sodium 2 caplet PO BID PRN 08/03/18 11/14/18 ondansetron 4 mg PO Q8H 08/03/18 11/14/18 clonazepam 1 mg tablet 1 mg PO TID PRN #90 tab-cap 09/22/18 11/14/18 divalproex [Depakote] 250 mg PO BID 11/14/18 11/14/18 Previous Rx's Medication Instructions Recorded baclofen 10 mg PO TID PRN #12 tab 08/03/18 clonazepam 1 mg tablet 1 mg PO TID PRN #90 tab-cap 09/22/18 Allergies Allergy/AdvReac Type Severity Reaction Status Date / Time amitriptyline Allergy Unknown SEDATION,ra Verified 11/14/18 12:21 sh ranitidine AdvReac Intermediate chest pain Verified 11/14/18 12:21 acetaminophen [From Vicodin] AdvReac Mild 11/11/17 Verified 11/14/18 12:21 chest pain upset stomach bisoprolol AdvReac Mild fatigue Verified 11/14/18 12:21 hydrocodone bitartrate AdvReac Mild 11/11/17 Verified 11/14/18 12:21 [From Vicodin] chest pain upset stomach nicotine polacrilex AdvReac Mild Skin Rash Verified 11/14/18 12:21 [From Nicorette] omeprazole AdvReac Unknown Other (See Verified 11/14/18 12:21 Comment) oxycodone AdvReac Verified 11/14/18 12:21 General Stated Complaint: Headache DEVEN: 2 Review of Systems Constitutional Denies body ache(s), Denies chills, Denies fever(s) and Reports headache(s) Eyes Reports blurry vision (Intermittently) ENT Reports abnormal hearing, Reports dizziness (Intermittent), Denies otalgia and Reports headache(s) Cardiovascular Denies chest pain and Denies syncope Gastrointestinal Reports nausea and Reports vomiting Neurologic Reports as per HPI, Reports abnormal hearing, Reports dizziness (Intermittent), Denies syncope, Reports headache(s) and Denies sensory deficit PFS Medical History Mild chronic obstructive pulmonary disease (Chronic) Fatigue (Chronic) Lazy eye of right side (Chronic) Memory deficit (Chronic) Raynaud phenomenon (Chronic) Headache (Chronic) Palliative care patient (Chronic 12/10/16) Testicular mass (Chronic) Disequilibrium (Acute) Cerebral aneurysm (Resolved) Nonerosive esophageal reflux disease Seizure disorder Tobacco use disorder Surgical History S/P craniotomy (Resolved) EGD (01/21/17) EGD - IV Sedation (05/24/15) EGD [facility] [place] Removal of foreign body (02/09/10) Repair of inguinal hernia (10/10/67) colonoscopy with cold biopsy (01/21/17) Family History Grandmother Diabetes Mother No problems noted. Father No problems noted. Social History caregiver/support person: Yes household members: spouse and children housing: apartment marital status details: 2nd marriage, to former d-in-l lives independently: No number of children: 3 highest education level completed: high school graduate service: No alf: No current occupational status: disabled pets and animals: No well-balanced diet: about half the time caffeine: Yes high-fat food intake: 2 times daily daily servings fruits/ve-1 daily servings of milk/calcium: 2-4 eating out: rarely or never reads food labels: seldom or never during the past year weight has: increased > 10 lbs what type of physical activity do you participate in: none Smoking and Tabacco status: Current every day Tobacco: How many years used: 45 quit status: not considering quitting Exam Const General: cooperative, healthy appearing, no acute distress and well groomed Orientation: alert, awake and oriented x3 HENMT Head: normal to inspection Ears: hearing grossly normal bilaterally and TM's normal bilaterally Mouth: oral mucosae normal and moist mucous membranes Throat: posterior oropharynx normal Eyes Visual Aguirre: normal visual aguirre by confrontation Alignment and Position: alignment normal Periorbital: periorbital findings normal Eyelids: eyelids normal Sclera: sclerae normal Cornea: corneas normal Pupils: PERRL EOM: EOM intact bilaterally Neck Neck: normal visual inspection, full ROM, no lymphadenopathy and no meningeal signs Resp Effort & Inspection: normal respiratory effort and able to speak in complete sentences Auscultation: clear to auscultation bilaterally Cardio Rate: regular rate Rhythm: regular rhythm Heart Sounds: S1 normal and S2 normal Neuro General: alert, awake, oriented x3, gait normal, tone normal, moves all extremities and CN's II-XI intact bilaterally Cognition: normal cognition Speech: speech normal Motor: muscle tone normal throughout, strength 5/5 throughout, no pronator drift, no movement abnormalities noted and no fasciculations Sensory Exam: no sensory deficits noted Coordination: [id number] test normal, Romberg test normal and Does not sway with eyes open Course Vital Signs Temperature 36.7 C 11/14/18 12:15 Pulse 88 11/14/18 12:15 Respiratory Rate 16 11/14/18 12:15 Blood Pressure 122/82 11/14/18 12:15 Pulse Oximetry 98 11/14/18 12:15 Temperature 36.7 C 11/14/18 12:15 Temperature Source Skin 11/14/18 12:15 Pulse 88 11/14/18 12:15 Respiratory Rate 16 11/14/18 12:15 Blood Pressure 122/82 11/14/18 12:15 Blood Pressure Position Sitting 11/14/18 12:15 Pulse Oximetry 98 11/14/18 12:15 Oxygen Delivery Method Room Air 11/14/18 12:15 Oxygen Flow Rate 0 11/14/18 12:15 Pain Level 6 11/14/18 12:25
== END 2018-11-14 15:24 | disposition home or self-care (01) ==
PROVIDERS: Emergency Provider Nurse Practitioner Family; PCP Nurse Practitioner
DX: R51 Headache (principal); R42 Dizziness and giddiness; J44.9 Chronic obstructive pulmonary disease, unspecified
CPT/HCPCS: 99284; 70450

== ENCOUNTER 2018-11-28 16:41 | Outpatient (CLI) | payer MEDICAID, SELFPAY ==
--- NOTE | 2018-11-28 11:00 | DI.CT_ITS ---
SYMPTOM/DIAGNOSIS: SEVERE ABD PAIN, R10.9, R10.31,R10.32, RLQ PAIN ABDOMEN AND PELVIC CT: CT scan of the abdomen and pelvis was performed following the uneventful administration of intravenous and oral contrast material. Comparison is made with 09/09/17. Mild dependent atelectatic changes are seen in the lung bases. The liver is normal in size. No suspicious hepatic mass is seen. The portal, superior mesenteric and splenic veins are patent. The gallbladder is negative. No biliary ductal dilatation is seen. The pancreas and peripancreatic soft tissues are unremarkable as are the spleen and adrenal glands. The right kidney is normal in location. No solid renal mass or obstruction is identified. There is again seen a left pelvic kidney which appears stable. No left renal mass is seen. No evidence of obstruction is present. The urinary bladder is intact. The reproductive organs are unremarkable. There is atherosclerosis of the abdominal aorta but no aneurysmal dilatation is present. No abdominal or pelvic adenopathy, ascites or pneumoperitoneum is present. The bowel shows no evidence of obstruction or inflammation. There is a normal appendix seen in the right lower quadrant. There is a moderate amount of stool throughout the colon. Degenerative changes are seen in the spine. Note is made of spondylolysis of L 5 but no spondylolisthesis is present. IMPRESSION: No evidence of an acute abdomen.
[2018-11-28 11:42] LABS: CREATININE 0.99 mg/dL (0.70-1.30)
[2018-11-28] MEDS: Omnipaque 350 MG/ML 100 ML BTL IJ (12:50)
--- NOTE | 2018-11-28 18:01 | DI.VRAD_ITS ---
EXAM: CT Abdomen and Pelvis With Contrast EXAM DATE/TIME: 11/28/2018 12:55 PM CLINICAL HISTORY: 58 years old, male; Pain; Abdominal pain TECHNIQUE: Axial computed tomography images of the abdomen and pelvis with intravenous contrast. Coronal and sagittal reformatted images were created and reviewed. COMPARISON: No relevant prior studies available. FINDINGS: Lower thorax: Lung bases are clear. ABDOMEN: Liver: Normal. No mass. Gallbladder and bile ducts: Gallbladder is partly decompressed. Pancreas: Normal. No ductal dilation. Spleen: Normal. No splenomegaly. Adrenals: Normal. No mass. Kidneys and ureters: There is incomplete superior migration of the left kidney which is in the pelvis. No hydronephrosis or stones. Stomach and bowel: Normal. No obstruction. No mucosal thickening. Appendix: The appendix is well-seen and appears normal. PELVIS: Bladder: Unremarkable as visualized. Reproductive: Unremarkable as visualized. ABDOMEN and PELVIS: Intraperitoneal space: Normal. No free air. No significant fluid collection. Bones/joints: Bilateral L5 pars defects are present without significant spondylolisthesis. Soft tissues: Postsurgical changes are present in the right inguinal region. Vasculature: Atherosclerosis. Lymph nodes: Normal. No enlarged lymph nodes. IMPRESSION: 1. No acute findings. 2. Bilateral L5 pars defects. Dictated and Authenticated by: Alek Sosa MD. Ordering:BRANDON Adame MD
== END 2018-11-28 17:01 ==
PROVIDERS: PCP Nurse Practitioner; Visit Provider Nurse Practitioner
DX: R10.31 Right lower quadrant pain (principal); R10.32 Left lower quadrant pain
CPT/HCPCS: 36415; 74177; 82565; J3490

== ENCOUNTER 2018-11-28 17:17 | Emergency (ER) | payer MEDICAID, SELFPAY ==
[2018-11-28 17:20] VITALS: BP 129/72; PULSE 68; RESP 15; TEMP 36.8; O2SAT 98
--- NOTE | 2018-11-28 18:06 | ED.GENADUL_ITS ---
Discharge Plan Disposition Patient Disposition: HOME Condition: Good Discharge Details Chief Complaint: Abd Prob Clinical Impression: Abdominal pain Reason For Visit: LEVY Primary Care Provider: Wendi Bazzi ED Provider: Kirill Ramirez Meds and New Rx's Prescriptions: Continued clonazepam 1 mg tablet 1 mg PO TID PRN (Reason: anxiety) Qty: 90 RF: 2 multivitamin [Daily Multi-Vitamin] 1 EACH tablet 1 ea PO DAILY RF: 0 acetaminophen 325 mg Tablet 500 mg PO Q4H RF: 0 docusate sodium 100 mg Capsule 2 caplet PO BID PRNRF: 0 ondansetron 4 mg Tablet,Disintegrating 4 mg PO Q8H RF: 0 alum-mag hydroxide-simeth 400-400-40 mg/5 mL Suspension 15 ml PO PRN PRNRF: 0 baclofen 10 mg tablet 10 mg PO TID PRN (Reason: hiccups) Qty: 12 RF: 0 ibuprofen 800 MG tablet 800 mg PO PRN PRNRF: 0 divalproex [Depakote] 250 MG tablet,delayed release (DR/EC) 250 mg PO BID RF: 0 Discharge Instructions Instructions: Abdominal Pain (ED) Additional Instructions: Your laboratory studies here are fine. CT scan shows no acute abnormalities. He should follow-up with primary care. Return to ED for fever, vomiting, new or worsening pain. Referrals: Wendi Bazzi, MAINTENANCE PLANNER [Primary Care Provider] - Medical Decision Making Patient here reporting worsening abdominal pain since CAT scan today. Minimal tenderness in the right lower quadrant. Otherwise looks well and is afebrile. No labs were done today other than a creatinine. I will go ahead and get a CBC, LFTs, lipase. CAT scan has not been read so I will have it sent to [facility] for reading. I am fine. White count is normal. Lipase and LFTs normal. CT scan read by radiology as no acute changes. The appendix is normal. No inflammatory changes. Patient will be discharged to follow-up with primary care. Return to ED for fever, vomiting, worsening abdominal pain. Lab Data Lab results reviewed: Yes I reviewed the patient's lab results. HPI General Mode of arrival: EMS . Date/Time Provider Initiated Documentation: 11/28/18 17:22 . Limitations to Documentation: no limitations . Information obtained by: patient and old records reviewed . HPI Narrative: Patient presents to ED because of worsening abdominal pain. Patient has had abdominal pain for a week and a half now. He has had pain similar to this in the past. He has constipation not diarrhea. He has nausea but no vomiting. He has had no fever. Primary care sent him to CAT scan today. Since having the CAT scan he reports the pain is worse. He called an ambulance this afternoon and had them bring him here. He has no difficulty urinating. He has no chest pain or shortness of breath. Pain is in the periumbilical right lower quadrant area. Related Data Home Medications Medication Instructions Recorded Confirmed multivitamin [Daily Multi-Vitamin] 1 ea PO DAILY 12/23/16 11/28/18 ibuprofen 800 mg PO PRN PRN 05/22/18 11/28/18 acetaminophen 500 mg PO Q4H 08/03/18 11/28/18 alum-mag hydroxide-simeth 15 ml PO PRN PRN 08/03/18 11/28/18 baclofen 10 mg PO TID PRN #12 tab 08/03/18 11/28/18 docusate sodium 2 caplet PO BID PRN 08/03/18 11/28/18 ondansetron 4 mg PO Q8H 08/03/18 11/28/18 clonazepam 1 mg tablet 1 mg PO TID PRN #90 tab-cap 09/22/18 11/28/18 divalproex [Depakote] 250 mg PO BID 11/14/18 11/28/18 Previous Rx's Medication Instructions Recorded baclofen 10 mg PO TID PRN #12 tab 08/03/18 clonazepam 1 mg tablet 1 mg PO TID PRN #90 tab-cap 09/22/18 Allergies Allergy/AdvReac Type Severity Reaction Status Date / Time amitriptyline Allergy Unknown SEDATION,ra Verified 11/28/18 17:24 sh ranitidine AdvReac Intermediate chest pain Verified 11/28/18 17:24 acetaminophen [From Vicodin] AdvReac Mild 11/11/17 Verified 11/28/18 17:24 chest pain upset stomach bisoprolol AdvReac Mild fatigue Verified 11/28/18 17:24 hydrocodone bitartrate AdvReac Mild 11/11/17 Verified 11/28/18 17:24 [From Vicodin] chest pain upset stomach nicotine polacrilex AdvReac Mild Skin Rash Verified 11/28/18 17:24 [From Nicorette] omeprazole AdvReac Unknown Other (See Verified 11/28/18 17:24 Comment) oxycodone AdvReac Verified 11/28/18 17:24 General Stated Complaint: Abd Prob DEVEN: 3 Review of Systems Constitutional Denies fever(s) and Denies weakness Cardiovascular Denies chest pain, Denies diaphoresis, Denies syncope and Denies dyspnea Respiratory Denies cough and Denies dyspnea Gastrointestinal Reports abdominal pain, Reports constipation, Denies diarrhea, Reports nausea and Denies vomiting Genitourinary Denies genital pain, Denies dysuria, Denies flank pain and Denies testicular pain Musculoskeletal Denies back pain and Denies numbness Neurologic Denies confusion, Denies syncope, Denies numbness and Denies weakness Psychiatric Denies confusion [facility] Medical History Mild chronic obstructive pulmonary disease (Chronic) Fatigue (Chronic) Lazy eye of right side (Chronic) Memory deficit (Chronic) Raynaud phenomenon (Chronic) Headache (Chronic) Palliative care patient (Chronic 12/10/16) Disequilibrium (Chronic) Cerebral aneurysm (Resolved) Nonerosive esophageal reflux disease (Chronic) Seizure disorder (Chronic) Tobacco use disorder (Chronic) Surgical History S/P craniotomy (Resolved) S/P orchiectomy (Inactive) EGD (Inactive 01/21/17) Removal of foreign body (Inactive 02/09/10) Repair of inguinal hernia (Inactive 10/10/67) colonoscopy with cold biopsy (Inactive 01/21/17) Social History caregiver/support person: Yes household members: spouse and children housing: apartment marital status details: 2nd marriage, to former d-in-l lives independently: No number of children: 3 highest education level completed: high school graduate service: No group home: No current occupational status: disabled pets and animals: No well-balanced diet: about half the time caffeine: Yes high-fat food intake: 2 times daily daily servings fruits/ve-1 daily servings of milk/calcium: 2-4 eating out: rarely or never reads food labels: seldom or never during the past year weight has: increased > 10 lbs what type of physical activity do you participate in: none Smoking and Tabacco status: Current every day Tobacco: How many years used: 45 quit status: not considering quitting Exam Const General: cooperative, comfortable and no acute distress Orientation: alert and oriented x3 Eyes Sclera: sclerae normal Resp Effort & Inspection: normal respiratory effort Auscultation: clear to auscultation bilaterally Cardio Rate: regular rate Rhythm: regular rhythm Heart Sounds: S1 normal and S2 normal GI Inspection: non-distended Palpation: soft, not firm, no guarding and tender (minimal RLQ tenderness without guarding or rebound) Male General Exam: No hernia Other: Unremarkable exam other than absent right testicle s/p removal. Neuro General: alert, oriented x3, no focal motor deficits and CN's II-XI intact bilaterally Course Vital Signs Temperature 98.2 F 11/28/18 17:20 Pulse 68 11/28/18 17:20 Respiratory Rate 15 11/28/18 17:20 Blood Pressure 129/72 11/28/18 17:20 Pulse Oximetry 98 11/28/18 17:20 Temperature 98.2 F 11/28/18 17:20 Pulse 68 11/28/18 17:20 Respiratory Rate 15 11/28/18 17:20 Blood Pressure 129/72 11/28/18 17:20 Blood Pressure Position Supine 11/28/18 17:20 Pulse Oximetry 98 11/28/18 17:20 Oxygen Delivery Method Room Air 11/28/18 17:20 Oxygen Flow Rate 0 11/28/18 17:20 Pain Level 10 11/28/18 17:20
[2018-11-28 18:07] LABS: Abs Immature Grans 0.01 k/cumm (0.0-0.09); Absolute Basophil Count 0.03 k/cumm (0.0-0.2); Absolute Eosinophil Count 0.12 k/cumm (0.0-0.7); Absolute Lymphocyte Count 2.23 k/cumm (1.2-3.4); Absolute Monocyte Count 0.55 k/cumm (0.11-0.7); Absolute Neutrophil Count 2.95 k/cumm (1.2-6.7); Basophils % 0.5; HCT 43.4 % (40.0-50.0); HGB 15.1 g/dL (13.5-17.5); Immature Grans % 0.2; Lymphocytes % 37.9; Mean Corp. HGB Concentration 34.8 g/dL (32.0-36.0); Mean Corpuscular Hemoglobin 31.9 pg (27.0-33.0); Mean Corpuscular Volume 91.6 fL (80-95); Monocytes % 9.3; Neutrophils % 50.1; Platelet Count 171 x1000/uL (130-400); RBC 4.74 m/cumm (4.50-6.00); White Blood Cell Count 5.89 k/cumm (4.4-10.8)
[2018-11-28 18:13] LABS: Bilirubin Negative (Negative); Blood Negative (Negative); Clarity Clear; Glucose Negative (Negative); Ketones Negative (Negative); Leukocyte Esterase Negative (Negative); Nitrite Negative (Negative); Urobilinogen 0.2 EU/dL (Up TO 0.2); pH 7.5 (5-8)
[2018-11-28 18:21] LABS: ALT 17 U/L (12-78); AST 12 U/L (15-37); Albumin 3.1 g/dL (3.4-5.0); Alkaline Phosphatase 80 U/L (46-116); Bilirubin, Direct 0.11 mg/dL (0.00-0.20); Bilirubin, Total 0.6 mg/dL (0.2-1.0); Lipase 96 U/L (73-393); Total Protein 7.6 g/dL (6.4-8.2)
== END 2018-11-28 19:19 | disposition home or self-care (01) ==
LOC: ER 19:20
PROVIDERS: Emergency Provider Emergency Medicine; PCP Nurse Practitioner
DX: R10.31 Right lower quadrant pain (principal); J44.9 Chronic obstructive pulmonary disease, unspecified; F17.210 Nicotine dependence, cigarettes, uncomplicated
CPT/HCPCS: 36415; 80076; 83690; 99283; 81003; 85025

== ENCOUNTER 2018-11-30 15:02 | Outpatient (REF) | payer MEDICAID, SELFPAY ==
[2018-11-30 19:18] LABS: Bilirubin Negative (Negative); Blood Negative (Negative); Clarity Clear; Glucose Negative (Negative); Ketones Negative (Negative); Leukocyte Esterase Negative (Negative); Nitrite Negative (Negative); Urobilinogen 0.2 EU/dL (Up TO 0.2)
== END 2018-11-30 15:22 ==
LOC: LBN 15:02
PROVIDERS: PCP Nurse Practitioner; Visit Provider Nurse Practitioner
DX: R10.9 Unspecified abdominal pain (principal); M54.9 Dorsalgia, unspecified
CPT/HCPCS: 81003; 87086

== ENCOUNTER 2018-12-02 13:05 | Outpatient (REF) | payer MEDICAID, SELFPAY ==
[2018-12-06 11:46] LABS: Helicobacter pylori Ag, Feces Negative (NEGAT)
== END 2018-12-02 13:25 ==
LOC: LBN 13:05
PROVIDERS: PCP Nurse Practitioner; Visit Provider Nurse Practitioner
DX: R10.9 Unspecified abdominal pain (principal)
CPT/HCPCS: 87338

== ENCOUNTER 2018-12-22 12:53 | Outpatient (CLI) | payer MEDICAID, SELFPAY ==
--- NOTE | 2018-12-22 12:00 | DI.RAD_ITS ---
SYMPTOMS/DIAGNOSIS: ABDOMINAL BLOATING, WATERY STOOL, CONSTIPATION, ABDOMINAL DISTENTION, K59.00, R14.0 FLAT AND UPRIGHT ABDOMEN: The visualized lung bases are clear. No organomegaly or pneumoperitoneum is seen. There is a moderate amount of stool throughout the colon suggesting constipation. No evidence of bowel obstruction is seen. Degenerative changes are seen in the spine. IMPRESSION: Findings of constipation.
== END 2018-12-22 13:13 ==
PROVIDERS: PCP Nurse Practitioner; Visit Provider Nurse Practitioner
DX: K59.00 Constipation, unspecified (principal); R14.0 Abdominal distension (gaseous); R19.5 Other fecal abnormalities
CPT/HCPCS: 74019

== ENCOUNTER 2019-03-22 09:15 | Emergency (ER) | payer MEDICAID, SELFPAY ==
[2019-03-22] VITALS (97 sets, daily range): BP systolic 95–127; BP diastolic 57–85; PULSE 56–85; RESP 9–40; TEMP 36.6–36.8; O2SAT 93–100
--- NOTE | 2019-03-22 09:55 | W.ED.GENAD ---
Discharge Plan Disposition Patient Disposition: HOME Condition: Stable Discharge Details Chief Complaint: Chest Pain Clinical Impression: Chest pain Primary Care Provider: Wendi Bazzi ED Provider: Soo Payton Home Meds and New Rx's Prescriptions: Continued multivitamin [Daily Multi-Vitamin] 1 EACH tablet 1 ea PO DAILY RF: 0 lactulose 20 gram/30 mL solution 20 gm PO QID PRN (Reason: constipation) Qty: 600 RF: 0 clonazepam 1 mg tablet 1 mg PO TID PRN (Reason: anxiety) Qty: 90 RF: 2 acetaminophen 325 mg tablet 500 mg PO Q4H PRN (Reason: pain) RF: 0 ondansetron 4 mg tablet,disintegrating 4 mg PO Q8H PRN (Reason: nausea and vomiting) RF: 0 divalproex [Depakote] 250 MG tablet,delayed release (DR/EC) 250 mg PO BID RF: 0 Discharge Instructions Instructions: Chest Pain (ED) Additional Instructions: Please return to the emergency department immediately if you develop any new or worsening symptoms or if you become otherwise concerned. It is extremely important that you call as soon as possible to make an appointment to be seen by her primary care doctor, and also that you have a stress test performed as we discussed. Referrals: Wendi Bazzi, ENTRY LEVEL SOFTWARE DEVELOPER [Primary Care Provider] - Discharge Data Discharge Date/Time-TO BE ENTERED AT DEPARTURE: 03/22/19 15:17 Medical Decision Making Kike Rodriguez is a 58-year-old man with history of coronary artery disease, COPD, epilepsy, GERD who presented to the emergency department with chest pain for the past few days, waxing and waning. On exam patient is well and nontoxic appearing. Benign cardiopulmonary exam. Concern for ACS versus PE versus other. Exam/history is not consistent with acute aortic pathology, sepsis. Plan for EKG, chest x-ray, screening labs, IV, telemetry. Patient received aspirin from EMS in the field. Patient reports his pain is 7 out of 10, will give nitroglycerin sublingual. Patient reports that he did not take his morning meds today, will give Depakote as prescribed. Initial labs okay. Will repeat trop and EKG. Patient reported pain is resolved after nitro, we will continue to monitor. Repeat troponin, EKG normal. HEART score low risk. I will order stress test for outpatient testing this week. I had a lengthy discussion with the patient regarding return to emergency department precautions, importance of outpatient follow-up, and home care. Patient verbalized understanding of the plan was amenable. All questions were answered. Patient was discharged home with clear plan for outpatient follow-up. Medical Records Medical records reviewed: Yes I reviewed the patient's medical records. Imaging Data Radiologic Study: Attestation: I personally reviewed and interpreted this imaging study as follows: Radiologist's impression: PORTABLE AP CHEST: Comparison is made with 06/07/18. The heart is normal in size. The lungs are clear. The mediastinal structures and pleura appear intact. CONCLUSION: Normal chest. Lab Data Lab results reviewed: Yes I reviewed the patient's lab results. Laboratory Tests Range/Units 03/22/19 03/22/19 03/22/19 10:08 10:08 10:08 WBC (4.4-10.8) k/cumm 4.02 L RBC (4.50-6.00) m/cumm 5.04 Hgb (13.5-17.5) g/dL 16.3 Hct (40.0-50.0) % 46.4 MCV (80-95) fL 92.1 MCH (27.0-33.0) pg 32.3 MCHC (32.0-36.0) g/dL 35.1 RDW (11.8-14.1) % 13.4 Plt Count (130-400) x1000/uL 163 MPV (8.0-11.0) fL 10.3 Immature Gran % 0.2 Neutrophils % 59.7 Lymphocytes % 28.9 Monocytes % 9.0 Eosinophils % 1.2 Basophils % 1.0 Absolute Neutrophils (1.2-6.7) k/cumm 2.40 Absolute Lymphocytes (1.2-3.4) k/cumm 1.16 L Absolute Monocytes (0.11-0.7) k/cumm 0.36 Absolute Eosinophils (0.0-0.7) k/cumm 0.05 Absolute Basophils (0.0-0.2) k/cumm 0.04 D-Dimer (<500) ng/mlFEU 323 Sodium (136-145) mmol/L 138 Potassium (3.5-5.1) mmol/L 4.0 Chloride (98-107) mmol/L 104 Carbon Dioxide (21.0-32.0) mmol/L 25.6 Anion Gap (3-11) mmol/L 8.4 BUN (7-18) mg/dL 11 Creatinine (0.70-1.30) mg/dL 1.08 Estimated GFR/1.73 m2 (mL/min/1.73m2) >= 60.00 Glucose (70-100) mg/dL 98 Calcium (8.5-10.1) mg/dL 9.1 Magnesium (1.8-2.4) mg/dL 2.2 Total Bilirubin (0.2-1.0) mg/dL 0.6 AST (15-37) U/L 15 ALT (12-78) U/L 23 Alkaline Phosphatase (46-116) U/L 75 Troponin I (0.00-0.06) ng/mL < 0.02 NT-Pro-B Natriuret Pep ( - 299) pg/mL 25 Total Protein (6.4-8.2) g/dL 7.9 Albumin (3.4-5.0) g/dL 3.5 Range/Units 03/22/19 13:15 WBC (4.4-10.8) k/cumm RBC (4.50-6.00) m/cumm Hgb (13.5-17.5) g/dL Hct (40.0-50.0) % MCV (80-95) fL MCH (27.0-33.0) pg MCHC (32.0-36.0) g/dL RDW (11.8-14.1) % Plt Count (130-400) x1000/uL MPV (8.0-11.0) fL Immature Gran % Neutrophils % Lymphocytes % Monocytes % Eosinophils % Basophils % Absolute Neutrophils (1.2-6.7) k/cumm Absolute Lymphocytes (1.2-3.4) k/cumm Absolute Monocytes (0.11-0.7) k/cumm Absolute Eosinophils (0.0-0.7) k/cumm Absolute Basophils (0.0-0.2) k/cumm D-Dimer (<500) ng/mlFEU Sodium (136-145) mmol/L Potassium (3.5-5.1) mmol/L Chloride (98-107) mmol/L Carbon Dioxide (21.0-32.0) mmol/L Anion Gap (3-11) mmol/L BUN (7-18) mg/dL Creatinine (0.70-1.30) mg/dL Estimated GFR/1.73 m2 (mL/min/1.73m2) Glucose (70-100) mg/dL Calcium (8.5-10.1) mg/dL Magnesium (1.8-2.4) mg/dL Total Bilirubin (0.2-1.0) mg/dL AST (15-37) U/L ALT (12-78) U/L Alkaline Phosphatase (46-116) U/L Troponin I (0.00-0.06) ng/mL < 0.02 NT-Pro-B Natriuret Pep ( - 299) pg/mL Total Protein (6.4-8.2) g/dL Albumin (3.4-5.0) g/dL ECG Data Attestation: I personally reviewed and interpreted this ECG (s) as follows: Interpretation: EKG shows sinus rhythm at 77, normal axis, no ST elevation or depression, nondiagnostic EKG Repeat EKG shows sinus rhythm at 64, no ST elevation or depression, unchanged from prior, nondiagnostic EKG HPI General Mode of arrival: ambulatory. Date/Time Provider Initiated Documentation: 03/22/19 09:55. Limitations to Documentation: no limitations. Information obtained by: patient, RN notes reviewed and old records reviewed. HPI Narrative: Kike Rodriguez is a 58 y/o man with history of COPD, epilepsy, obstructive sleep apnea, coronary artery disease presenting to the emergency department chest pain. Patient reports that he has been having chest pain shortness of breath over the past 3 to 4 days. Patient reports that pain is in his left chest and does not radiate. It feels like a pressure sensation, has been constant and unchanged since onset several days ago. He reports that nothing seems to make pain better or worse, including exertion. He has also had some increasing shortness of breath over the same time. Has been eating and drinking as usual. No long car rides or plane flights. No recent immobilization. He denies other pain, rash, numbness/weakness the extremities, vomiting, diarrhea. Related Data Home Medications Medication Instructions Recorded Confirmed multivitamin [Daily Multi-Vitamin] 1 ea PO DAILY 12/23/16 03/22/19 divalproex [Depakote] 250 mg PO BID 11/14/18 03/22/19 lactulose 20 gram/30 mL oral 20 gm PO QID PRN #600 ml 11/29/18 02/07/19 solution acetaminophen 325 mg tablet 500 mg PO Q4H PRN 12/02/18 03/22/19 ondansetron 4 mg disintegrating 4 mg PO Q8H PRN 12/02/18 03/22/19 tablet clonazepam 1 mg tablet 1 mg PO TID PRN #90 tab-cap 02/13/19 03/22/19 Previous Rx's Medication Instructions Recorded lactulose 20 gram/30 mL oral 20 gm PO QID PRN #600 ml 11/29/18 solution clonazepam 1 mg tablet 1 mg PO TID PRN #90 tab-cap 02/13/19 Allergies Allergy/AdvReac Type Severity Reaction Status Date / Time amitriptyline Allergy Unknown SEDATION,ra Verified 03/22/19 09:36 sh ranitidine AdvReac Intermediate chest pain Verified 03/22/19 09:36 acetaminophen [From Vicodin] AdvReac Mild 11/11/17 Verified 03/22/19 09:36 chest pain upset stomach bisoprolol AdvReac Mild fatigue Verified 03/22/19 09:36 hydrocodone bitartrate AdvReac Mild 11/11/17 Verified 03/22/19 09:36 [From Vicodin] chest pain upset stomach nicotine polacrilex AdvReac Mild Skin Rash Verified 03/22/19 09:36 [From Nicorette] omeprazole AdvReac Unknown Other (See Verified 03/22/19 09:36 Comment) oxycodone AdvReac Verified 03/22/19 09:36 General Stated Complaint: Chest Pain DEVEN: 3 Review of Systems Review of Systems Constitutional: denies fevers Eyes: denies eye pain ENT: denies facial pain, dental pain, sore throat Cardiovascular: denies edema, reports chest pain Respiratory: denies cough, reports shortness of breath GI: denies abdominal pain, vomiting, diarrhea : denies flank pain MSK: denies back pain, neck pain, arthralgias, myalgias Skin: denies rash Neuro: denies headaches, numbness, weakness [facility] Medical History Mild chronic obstructive pulmonary disease (Chronic) Fatigue (Chronic) Lazy eye of right side (Chronic) Memory deficit (Chronic) Raynaud phenomenon (Ruled-out) Headache (Resolved) Palliative care patient (Chronic 12/10/16) Disequilibrium (Chronic) Cerebral aneurysm (Resolved) Nonerosive esophageal reflux disease (Chronic) Seizure disorder (Chronic) Tobacco use disorder (Chronic) Surgical History S/P craniotomy (Resolved) EGD (Inactive 01/21/17) Removal of foreign body (Inactive 02/09/10) Repair of inguinal hernia (Inactive 10/10/67) S/P orchiectomy (Inactive) colonoscopy with cold biopsy (Inactive 01/21/17) Social History Smoking/Tobacco Use Status: Current every day Tobacco: How many years used: 45 Quit status: considering quitting Second Hand Exposure: No Counseling given: counseling >3 minutes Alcohol Intake: former Drug use: Never Caregiver/Support person: Yes Household members: spouse and children Housing: apartment Number of Children: 3 Education Level: high school Do you need help understanding health information?: Often Pets and animals: No What is your relationship status?: How often do you talk on the phone with friends or family?: once per week How often do you get together with friends or relatives?: once per week Panel score (0-1 are the most socially isolated patients): 1 What type of physical activity do you participate in: walking and occasional exercise Special alicia needs: No Agree to transfusion: Yes Working smoke detector in home: Yes Fire extinguisher in home: Yes Do you feel safe at home: Yes Do you feel safe in your relationship?: Yes Additional Social history: really hates where he lives wants to move into place where he has room to work on cars, [place], be outside more Exam Narrative Exam Narrative: Constitutional: well and [id number], pleasant, conversing normally HENT: head atraumatic/normocephalic/normal inspection, mucous membranes moist Eyes: conjunctiva normal, sclera normal, pupils 3mm b/l Neck: no stridor, normal ROM, trachea midline Chest: normal inspection, palpation of anterior left chest reproduces pain, no crepitus or overlying skin changes Resp: normal work of breathing, LCTAB Cardio: normal rate, normal rhythm, no murmur appreciated GI: abdomen soft, non-tender, non-distended Back: normal inspection, no rash Skin: warm, dry, normal color, no rash Neuro: alert, not altered, grossly non-focal, normal tone Ext: no edema but no posterior calf tenderness palpation Psych: normal mood, normal affect, normal behavior Course Vital Signs Temperature 36.6 C 03/22/19 09:15 Pulse 81 03/22/19 09:15 Respiratory Rate 22 03/22/19 09:15 Blood Pressure 127/80 03/22/19 09:15 Pulse Oximetry 95 03/22/19 09:15 Temperature 36.6 C 03/22/19 09:15 Temperature Source Temporal Artery Scan 03/22/19 09:15 Pulse 81 03/22/19 09:15 Respiratory Rate 22 03/22/19 09:30 Respiratory Effort 03/22/19 09:30 Respiratory Depth Normal 03/22/19 09:30 Respiratory Pattern Normal 03/22/19 09:30 Blood Pressure 127/80 03/22/19 09:15 Blood Pressure Position Sitting 03/22/19 09:15 Pulse Oximetry 95 03/22/19 09:15 Oxygen Delivery Method Room Air 03/22/19 09:15 Oxygen Flow Rate 0 03/22/19 09:15 Pain Level 9 03/22/19 09:15
--- NOTE | 2019-03-22 10:02 | DI.RAD_ITS ---
SYMPTOM/DIAGNOSIS: CHEST PAIN PORTABLE AP CHEST: Comparison is made with 06/07/18. The heart is normal in size. The lungs are clear. The mediastinal structures and pleura appear intact. CONCLUSION: Normal chest.
[2019-03-22 10:21] LABS: Abs Immature Grans 0.01 k/cumm (0.0-0.09); Absolute Basophil Count 0.04 k/cumm (0.0-0.2); Absolute Eosinophil Count 0.05 k/cumm (0.0-0.7); Absolute Lymphocyte Count 1.16 k/cumm (1.2-3.4); Absolute Monocyte Count 0.36 k/cumm (0.11-0.7); Eosinophils % 1.2; HCT 46.4 % (40.0-50.0); HGB 16.3 g/dL (13.5-17.5); Immature Grans % 0.2; Lymphocytes % 28.9; Mean Corp. HGB Concentration 35.1 g/dL (32.0-36.0); Mean Corpuscular Hemoglobin 32.3 pg (27.0-33.0); Mean Corpuscular Volume 92.1 fL (80-95); Mean Platelet Volume 10.3 fL (8.0-11.0); Neutrophils % 59.7; Platelet Count 163 x1000/uL (130-400); RBC 5.04 m/cumm (4.50-6.00); RBC Distribution Width 13.4 % (11.8-14.1); White Blood Cell Count 4.02 k/cumm (4.4-10.8)
[2019-03-22] MEDS: Divalproex 250 MG TABEC PO (10:45)
[2019-03-22 10:52] LABS: ALT 23 U/L (12-78); AST 15 U/L (15-37); Albumin 3.5 g/dL (3.4-5.0); Alkaline Phosphatase 75 U/L (46-116); Anion Gap 8.4 mmol/L (3-11); BUN 11 mg/dL (7-18); Bilirubin, Total 0.6 mg/dL (0.2-1.0); CO2 25.6 mmol/L (21.0-32.0); CREATININE 1.08 mg/dL (0.70-1.30); Calcium 9.1 mg/dL (8.5-10.1); Chloride 104 mmol/L (98-107); Glucose 98 mg/dL (70-100); Magnesium 2.2 mg/dL (1.8-2.4); NT-proBNP 25 pg/mL; Sodium 138 mmol/L (136-145); Total Protein 7.9 g/dL (6.4-8.2)
[2019-03-22 10:53] LABS: Troponin I < 0.02 ng/mL (0.00-0.06)
[2019-03-22 11:01] LABS: D-Dimer 323 ng/mlFEU (<500)
[2019-03-22 14:05] LABS: Troponin I < 0.02 ng/mL (0.00-0.06)
== END 2019-03-22 15:17 | disposition home or self-care (01) ==
PROVIDERS: Emergency Provider Student in an Organized Health Care Education/Training Program; PCP Nurse Practitioner
DX: R07.9 Chest pain, unspecified (principal); I25.10 Atherosclerotic heart disease of native coronary artery without angina pectoris; J44.9 Chronic obstructive pulmonary disease, unspecified; K21.9 Gastro-esophageal reflux disease without esophagitis; F17.210 Nicotine dependence, cigarettes, uncomplicated
CPT/HCPCS: 36415; 80053; 93005; 99285; 71045; 83735; 83880; 84484; 85025; 85379; 93010

== ENCOUNTER 2019-03-27 00:51 | Outpatient (CLI) | payer MEDICAID, SELFPAY ==
--- NOTE | 2019-03-27 14:00 | ETT_ITS ---
*[facility]* *[facility]* [address] [place] [address] Stress Electrocardiography Cordell protocol Date of study: 03/27/2019 *PATIENT PRESENTATION* Height: 167.6cm (66in) Blood Pressure: Weight: 72.7kg (160lb) BSA: 1.85m^2 Referring physician: Soo Payton Ordering physician: Soo Payton Impressions: Normal study after maximal exercise. Summary: 1. Stress ECG conclusions: The stress ECG is negative. Cisneros treadmill score: 3. This score predicts a moderate risk of cardiac events. 2. Stress: The target heart rate was achieved. Indication: R07.9. History: REASON FOR VISIT: PT WAS SEEN IN THE ED ON 03/22/19 FOR CHEST PAIN. TROPONINS AND EKG WERE NEGATIVE FOR ACUTE CORONARY SYNDROME. PMH: COPD. Risk factors: ACTIVE SMOKER 4 CIGARETTES DAILY. Family history of coronary artery disease. Current tobacco use. Cholesterol: 171mg/dl. HDL: 38mg/dl. LDL: 120mg/dl. Triglycerides: 69mg/dl. Cerebral vascular disease. ALLERGIES: AMITRIPTYLINE. RANITIDINE. ACETAMINOPHEN BISOPROLOL. MEDICATIONS: DEPAKOTE 250 MG BID. CLONAZEPAM 1 MG TID. ONDANSETRON 4 MG Q HRS PRN. MVI 1 DAILY. LACTULOSE 20 GM QID PRN. ACETAMINOPHEN 500 MG Q 4 HRS PRN. Protocol: Cordell protocol. Baseline ECG: SINUS RHYTHM. HR 83 BPM. Stress protocol: + +---+ + !Stage !HR !BP (mmHg) ! + +---+ + !Baseline supine !83 !110/66 (81) ! + +---+ + !Baseline standing !88 !110/80 (90) ! + +---+ + !Stage I; 1.7mph, 10degrees; 3 min !112!120/80 (93) ! + +---+ + !Stage II; 2.5mph, 12degrees; 3 min!133!136/88 (104)! + +---+ + !Peak stress !143! ! + +---+ + !Recovery; 1 min !132!126/64 (85) ! + +---+ + !Recovery; 3 min !93 !128/72 (91) ! + +---+ + !Recovery; 6 min !90 !110/80 (90) ! + +---+ + * Stress results: Maximal heart rate during stress was 143bpm (87% of maximal predicted heart rate). The maximal predicted heart rate was 164bpm. The target heart rate was achieved. The rate-pressure product for the peak heart rate and blood pressure was 58548op Hg/min. Stress ECG: STRESS TEST ENDED IN 6 MINUTES & 27 SECONDS DUE TO SHORTNESS OF BREATH AND FATIGUE NORMAL HEART RATE AND BLOOD PRESSURE RESPONSE TO EXERCISE MAX HR = 143 % OF TARGET = 87 NO ECTOPY APPROXIMATE METS ACHIEVED = 7.72 CHEST PAIN, PT RATED AT A 3-4 OUT OF 10 CHEST HEAVINESS PRIOR TO START OF TREADMILL PORTION OF STRESS TEST. CHEST HEAVINESS SYMPTOMS DID NOT CHANGE WITH EXERCISE NO SIGNIFICANT ST SEGMENT CHANGES MILDLY DIMNISHED FUNCTIONAL CAPACITY FOR EXERCISE. The stress ECG is negative. Cisneros treadmill score: 3. This score predicts a moderate risk of cardiac events. Study data: Clay Jalloh MD supervised and was readily available during the procedure. This study was interpreted by [facility]. Study status: Routine. Consent: The risks, benefits, and alternatives to the procedure were explained to the patient and informed consent was obtained. Procedure: Initial setup. A baseline ECG was recorded. Surface ECG leads and manual cuff blood pressure measurements were monitored. Heart sounds: Normal. Lung sounds: Normal. Treadmill exercise testing was performed using the Cordell protocol. Study completion: The patient tolerated the procedure well and was discharged from the lab. Discharge: The patient left the laboratory in stable condition. Birthdate: Patient birthdate: 1960. Sex: Gender: male. Study date: Study date: 03/27/2019. Study time: 00:01 AM. Electronically signed by Clay Jalloh MD 03/27/2019 16:57
== END 2019-03-27 01:11 ==
PROVIDERS: PCP Nurse Practitioner; Visit Provider Student in an Organized Health Care Education/Training Program
DX: R07.89 Other chest pain (principal); R14.0 Abdominal distension (gaseous); K59.00 Constipation, unspecified
CPT/HCPCS: 74019; 93017

== ENCOUNTER 2019-03-27 14:04 | Outpatient (CLI) | payer MEDICAID, SELFPAY ==
--- NOTE | 2019-03-27 14:05 | DI.RAD_ITS ---
SYMPTOM/DIAGNOSIS: ABD BLOATING, ABD DISTENSION, CONSTIPATION, R14.0,GASEOUS, K59.00 FLAT AND UPRIGHT ABDOMEN: Comparison is made with 12/22/18. The lung bases show mild atelectasis. No free air is seen. There is no bowel dilatation or air fluid levels. There is no evidence of free air or organomegaly. No urinary tract calculi are identified. There is a moderate quantity of stool. IMPRESSION: Negative abdomen.
== END 2019-03-27 14:24 ==
PROVIDERS: PCP Nurse Practitioner; Visit Provider Nurse Practitioner
DX: R14.0 Abdominal distension (gaseous) (principal); K59.00 Constipation, unspecified
CPT/HCPCS: 74019

== ENCOUNTER 2025-06-03 20:11 | Emergency (ER) | payer OTHER, SELFPAY ==
[2025-06-03] VITALS (28 sets, daily range): BP systolic 126–145; BP diastolic 64–103; PULSE 66–85; RESP 9–20; TEMP 36.7; O2SAT 96–99
--- NOTE | 2025-06-03 20:15 | RT.EKG_ITS ---
APPROVED REPORT Exam: Resting ECG Reason for Exam: BP Issues Patient Location: E HR:74 bpm ECG Measurements Heart Rate 74 AXIS KS 158 P 70 QRSd 97 QRS 65 QT 356 T 49 QTc 394 Conclusion Sinus rhythm...normal P axis, V-rate 60- 99 No STEMI
--- NOTE | 2025-06-03 21:00 | DI.RAD_ITS ---
Exam(s) XR PORTABLE CHEST AP EXAM: XR PORTABLE CHEST AP CLINICAL HISTORY: Dizziness TECHNIQUE: 2D digital imaging was performed of the chest. One image was obtained. An AP view was obtained. COMPARISON: CR XR PORTABLE CHEST AP from 03/22/2019 FINDINGS: MEDIASTINUM: Normal. HEART: Normal. PULMONARY VASCULATURE: Normal. LUNGS: There is linear atelectasis present. No focal consolidating infiltrates are present. PLEURAL SPACE: No pleural effusion or pneumothorax. BONE:Within normal limits for the patient's age. OTHER FINDINGS:Normal. IMPRESSION: 1. There are no focal consolidating infiltrates. 2. The preliminary [facility] report was reviewed. DATA REPOSITORY: RADIATION DOSE DELIVERED:
--- NOTE | 2025-06-03 21:00 | DI.CT_ITS ---
Exam(s) CT BRAIN NECK CTA EXAM: CT BRAIN NECK CTA CLINICAL HISTORY: Dizziness. TECHNIQUE: Imaging Protocol: Axial CT angiography was performed with multi- slice acquisition and multi-planar and/or 3D reconstructions. CONTRAST MATERIAL: Intravenous: Omnipaque 350 Contrast volume:structured data in ml FINDINGS: CTA Neck W: Aortic arch anatomy: There is some calcified plaque at the origin of the great vessels off the aortic arch but no tight stenosis evident at these levels. There is also partially calcified plaque in the posterior wall of the left subclavian artery an there is calcified plaque at the origin left vertebral artery off of the left subclavian artery with moderate stenosis at this level. Anterior circulation: Both common carotid arteries ascend with normal luminal diameters. At the left carotid bulb there is no significant plaque. Partially calcified plaque is seen in the proximal left ICA, approximately 30 stenosis. Left ICA above this level is patent in the upper neck and skull base-carotid canal. On the right side of the neck there is partially calcified plaque at the carotid bulb and proximal right ICA. There is approximately 40 percent stenosis in the proximal right ICA. No dissection. Right internal carotid artery in the upper neck and skull base are patent. Posterior circulation: Both vertebral arteries originate in conventional fashion off of the subclavian arteries and there is no obvious stenosis at the origin of the right vertebral artery. There is stenosis at the origin of the left vertebral artery off of the left subclavian artery related to mix plaque Both vertebral arteries exhibit normal luminal diameters within the foramen transversarium. Also no evidence of dissection. Both vertebral arteries contribute to the formation of the basilar artery at the skull base. CTA Brain W: Anterior circulation: Both internal carotid arteries are patent in the skull base-carotid canals as well as within the cavernous sinuses. The supraclinoid aspects of the ICAs are patent. Both A1 segments are patent as are the anterior cerebral arteries and there is no evidence of aneurysm at the level of the anterior communicating artery. Left middle cerebral artery appears unremarkable. 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 The right MCA is otherwise patent. Posterior circulation: Basilar artery is formed at the skull base by both vertebral arteries and the basilar artery ascends without significant stenosis. Distally gives off superior cerebellar arteries and above this level terminates as patent bilateral posterior cerebral arteries. A posterior communicating artery seen on the left side of the [id number]. There is no evidence of aneurysm at the tip of the basilar artery nor elsewhere in the [id number]. CT BRAIN: Again noted is evidence of prior right temporal craniotomy. No skull fractures. No evidence of intracranial hemorrhage, new mass effect, or shift of midline structures. Ventricles are not enlarged nor shifted and there is no blood within the ventricular system nor within the basal cisterns. There are no ring enhancing lesions in the brain. No abnormal meningeal enhancement. IMPRESSION: 1. 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 There are no new intracranial findings. 2. The CTA reveals some partially calcified plaque in the proximal internal carotid arteries bilaterally with approximately 30-40 percent stenosis on both sides. 3. There is stenosis at the origin the left vertebral artery. The remainder of this artery appears unremarkable. Preliminary virtual Radiology report was reviewed. RADIATION DOSE DELIVERED: 2,263.21mGy.cm Total DLP DATA REPOSITORY: All CT scans at this facility are submitted to the National Radiology Data Registry (NRDR) Dose Index Registry (DIR) with the [employer] ([employer]). RADIATION OPTIMIZATION: All CT scans at this facility use at least one of these dose optimization techniques: automated exposure control; mA and/or kV adjustment per patient size (includes targeted exams where dose is matched to clinical indication); or iterative reconstruction.
--- NOTE | 2025-06-03 21:17 | W.ED.GENAD ---
Discharge Plan Disposition Patient Disposition: Home Discharge Details Clinical Impression: Chest pain, atypical, Seizure, Seizure secondary to subtherapeutic anticonvulsant medication, Abnormal radiologic findings on diagnostic imaging of renal pelvis, ureter, or bladder Primary Care Provider: Shelly,Local ED Provider: Cameron Maxwell Home Meds and New Rx's Prescriptions: Continued multivitamin [Daily Multi-Vitamin] 1 EACH tablet 1 ea PO DAILY lactulose 20 gram/30 mL solution 20 gm PO QID PRN (Reason: constipation) Qty: 600 0RF Rx Instructions: 30ml QID until BM clonazepam 1 mg tablet 1 mg PO TID PRN (Reason: anxiety) Qty: 90 2RF Rx Instructions: acetaminophen 325 mg tablet 500 mg PO Q4H PRN (Reason: pain) ondansetron 4 mg tablet,disintegrating 4 mg PO Q8H PRN (Reason: nausea and vomiting) divalproex [Depakote] 250 MG tablet,delayed release (DR/EC) 500 mg PO BID omeprazole 40 mg capsule,delayed release(DR/EC) 40 mg PO BID aspirin [Adult Low Dose Aspirin] 81 mg tablet,delayed release (DR/EC) 81 mg PO DAILY Discharge Instructions Instructions: Seizures Additional Instructions: Please follow-up with your primary care provider regarding your visit to the emergency department today. Be sure to discuss results of all test performed here today to include radiology, and laboratory testing as well as results for any pending cultures. As discussed we noticed an irregularity in your bladder wall. Please be sure to talk to your primary care provider regarding this finding and if you need a referral to urology for further assessment. As discussed, your Depakote levels were noted to be low today, I would recommend increasing your dosage to 750 mg twice daily, and follow-up with both your primary care neurologist. Should your symptoms worsen, or if you develop new concerning symptoms, please return immediately emergency department for further evaluation. HPI General Date/Time Provider Initiated Documentation: 06/03/25 20:18. HPI Narrative: MDM/Narrative: Initial Assessment: 65-year-old male with seizure, dizziness, and chest pain. History of aneurysm clipping in 2017 and esophageal spasms. Reports stress test from this past year with no suspicious findings, and most recent heart catheterization approximately 3 to 4 years ago. No actionable disease at this time. Differential Diagnosis: - Seizure: Recent episode lasting 7 minutes. Screening for factors lowering seizure threshold. Plan: Lung exam, urine test for infection, blood work, CT head. - ACS: EKG does not suggest KS. Plan: Monitor troponin levels. - Esophageal spasm: History of spasms causing chest pain. Nitroglycerin ineffective. Plan: Consider alternative treatments. ED Course: - EKG obtained, no signs of KS. - Blood work performed. - Urine test for infection conducted. - CTA head/neck completed. On reassessment, patient notes significant improvement of his symptoms. He remains hemodynamically stable and denies any acute complaints at this time. Results were shared with discussed with the patient. He is aware of the findings of the bladder wall irregularity. We also reviewed recommendations for increasing his Depakote dosage and the importance of follow-up with PCP/neurology to monitor his levels in regards to this. I suspect that the subtherapeutic levels of Depakote are the cause of his seizure today. Remainder of workup shows no acute findings, and patient is stable for discharge at this time. This document was created with assistance from [employer]. The patient consented to its use. Disposition: Home HPI: The patient is a 65-year-old male presenting with a convulsive episode. The patient reports experiencing vertigo upon awakening, which he attributes to recent fluctuations in blood pressure. He has a diagnosis of hypertension and discontinued his antihypertensive medication one month ago due to elevated blood pressure readings. He experienced cephalic and thoracic pressure accompanied by vertigo, which slightly improved by 1030 hours. However, he felt unwell again around 1300 hours and subsequently experienced a convulsive episode at 1645 hours, lasting approximately 7 minutes. His blood pressure readings have been inconsistent, with the last recorded systolic pressure at 97 mmHg, whereas his usual systolic pressure is around 130 mmHg. The vertigo is described as a sensation of the floor falling out, leading to a fall and subsequent knee injury. He denies any recent illness, fever, chills, cough, or upper respiratory symptoms. The patient maintains an active daily routine, has not traveled by plane recently, and has no history of deep vein thrombosis (DVT) or pulmonary embolism (PE). He reports mild chest pain that is not exacerbated by physical activity. He has a morning cough producing clear sputum, which he attributes to smoking. A stress test conducted earlier this year was normal, and a heart catheterization performed 3-4 years ago revealed minor arterial narrowing. He has no history of diabetes, maintains normal blood glucose levels, and is not on lipid-lowering medication. Currently, he experiences vertigo, weakness at rest, blurry vision with distant objects, and occasional tingling in the cheeks. He denies decreased appetite or signs of dehydration. He is scheduled for a total hip replacement at the end of the month. The patient is on Depakote 100 mg twice daily for seizure management, has not missed any doses, and has not had a seizure in over a year. He underwent brain surgery in 2017 for double clipping of an aneurysm. The patient has been diagnosed with esophageal spasms, which cause chest pain and dyspnea. Further evaluation at [facility] or [facility] has been recommended. Nitroglycerin was trialed for chest pain management, which affected his heart rate but did not alleviate the pain. PAST SURGICAL HISTORY: Hernia operation in childhood. Brain surgery in 2017 for double clipping of an aneurysm. ROS: Negative besides as mentioned above Exam: Vital signs: Reviewed. General Appearance: Alert and oriented. No acute distress. HEENT: NCAT, EOMI, not icteric. External ears normal. No rhinorrhea. Moist mucous membranes. Neck: Supple, full range of motion, no observable masses, No meningeal sign. Respiratory: No Respiratory distress. No tachypnea. Cardiovascular: Heart sounds normal. Gastrointestinal: Soft, nondistended, No rebound tenderness. Back: No midline tenderness to palpation or palpable step-offs of the C/T/L spine. Skin: Warm and dry, no rash. Neurological: Cranial nerves II-XII intact. Motor strength 5/5 in all extremities. No sensory deficits. Coordination intact. Psychiatric: Appropriate for situation. Rhythm: NSR Rate: 74 bpm [place]: Normal axis Intervals: Normal intervals Other findings: No acute ST segment or T wave changes to suggest acute ischemia. Labs: Laboratory Tests Range/Units 06/03/25 06/03/25 06/03/25 20:45 21:15 21:30 WBC (4.4-10.8) 10^3/uL 6.99 RBC (4.36-5.78) 10^6/uL 4.68 Hgb (13.5-17.5) g/dL 14.6 Hct (40.0-50.0) % 43.2 MCV (80-95) fL 92 MCH (27.0-33.0) pg 31.2 MCHC (32.0-36.0) % 33.8 RDW (11.8-14.1) % 13.0 Plt Count (130-400) 10^3/uL 240 MPV (8.0-11.0) fL 10.6 Immature Gran % % 0.3 Neutrophils % % 60.0 Lymphocytes % % 29.8 Monocytes % % 7.3 Eosinophils % % 1.6 Basophils % % 1.0 Nucleated RBC % (0.0-0.3) % 0.0 Absolute Neutrophils (1.2-6.7) 10^3/uL 4.20 Absolute Lymphocytes (1.2-3.4) 10^3/uL 2.08 Absolute Monocytes (0.1-0.8) 10^3/uL 0.51 Absolute Eosinophils (0.0-0.7) 10^3/uL 0.11 Absolute Basophils (0.0-0.2) 10^3/uL 0.07 PT (9.1-11.1) sec 9.8 INR (0.9-1.1) 1.0 APTT (20.6-30.2) sec 27.4 Sodium (136-145) mmol/L 140 Potassium (3.5-5.1) mmol/L 3.8 Chloride (98-107) mmol/L 104 Carbon Dioxide (21.0-32.0) mmol/L 25.9 Anion Gap (3-11) mmol/L 10.1 BUN (7-18) mg/dL 10 Creatinine (0.70-1.30) mg/dL 1.0 Est GFR (CKD-EPI 2020) (mL/min/1.73m2) 84.57 Glucose (74-106) mg/dL 99 Calcium (8.5-10.1) mg/dL 9.5 Magnesium (1.8-2.4) mg/dL 2.0 Total Bilirubin (0.2-1.0) mg/dL 0.5 AST (15-37) U/L 14 L ALT (16-63) U/L 22 Alkaline Phosphatase (46-116) U/L 84 Troponin I (<or=76) ng/L 5 6 NT-Pro-B Natriuret Pep (<300) pg/mL 40 Total Protein (6.4-8.2) g/dL 7.8 Albumin (3.4-5.0) g/dL 3.5 Urine Color (Yellow) Yellow Urine Clarity (Clear) Clear Urine pH (5-8) 7.0 Ur Specific [place] (1.005-1.025) 1.010 Urine Protein (Neg-Trace) mg/dL Negative Urine Ketones (Negative) mg/dL Negative Urine Blood (Negative) Negative Urine Nitrite (Negative) Negative Urine Bilirubin (Negative) Negative Urine Urobilinogen (Up to 0.2) mg/dL 0.2 Ur Leukocyte Esterase (Negative) Negative Urine Glucose (Negative) mg/dL Negative Valproic Acid ( - 150) ug/mL 18.3 Radiology: PROCEDURE INFORMATION: Exam: CTA Head Without And With Contrast, Arteriography Exam date and time: 06/03/2025 10:01 PM Age: 65 years old Clinical indication: Dizziness and giddiness TECHNIQUE: Imaging protocol: Computed tomographic angiography of the head without and with contrast. Exam focused on the arteries. 3D rendering (Not supervised by radiologist): MIP and/or 3D reconstructed images were created by the technologist. COMPARISON: CT - Vascular^CTA_HEAD (Adult) 07/21/2018 1:10 PM FINDINGS: ANTERIOR CIRCULATION: Right internal carotid artery: Mild calcified plaque is seen in the right supraclinoid internal carotid artery with mild stenosis. Right middle cerebral artery: No occlusion or significant stenosis. No aneurysm. Right anterior cerebral artery: No occlusion or significant stenosis. No aneurysm. Left internal carotid artery: Mild calcified plaque is seen in the left supraclinoid internal carotid artery with mild stenosis. Left middle cerebral artery: No occlusion or significant stenosis. No aneurysm. Left anterior cerebral artery: No occlusion or significant stenosis. No aneurysm. POSTERIOR CIRCULATION: Right vertebral artery: No occlusion or significant stenosis. No aneurysm. Left vertebral artery: No occlusion or significant stenosis. No aneurysm. Basilar artery: No occlusion or significant stenosis. No aneurysm. Right posterior cerebral artery: No occlusion or significant stenosis. No aneurysm. Left posterior cerebral artery: No occlusion or significant stenosis. No aneurysm. Veins: Dural venous sinuses are unremarkable. HEAD: Brain: Two aneurysm clips are seen in the right sylvian fissure . No abnormal intracranial enhancement. Cerebral ventricles: Normal. No ventriculomegaly. Bones: Mild generalized the volume loss. For holes are seen in the right frontal bone. Right frontotemporal craniotomy. Paranasal sinuses: Visualized sinuses are normal. No fluid levels. Mastoid air cells: Small amount of fluid is seen in the inferior left mastoid sinus similar to the prior study Soft tissues: Unremarkable. IMPRESSION: No large vessel occlusion, hemodynamically significant stenosis or aneurysm. 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 Small chronic left mastoid sinus effusion. Exam: CTA Neck Without And With Contrast Exam date and time: 06/03/2025 10:01 PM Age: 65 years old Clinical indication: Dizziness and giddiness TECHNIQUE: Imaging protocol: Computed tomographic angiography of the neck without and with contrast. Exam focused on the cervical segments of the vasculature. 3D rendering (Not supervised by radiologist): MIP and/or 3D reconstructed images were created by the technologist. COMPARISON: CT - Vascular^CTA_HEAD (Adult) 07/21/2018 1:10 PM FINDINGS: Right common carotid artery: No stenosis. No dissection or occlusion. Right internal carotid artery: Mild calcified plaque is seen in the right carotid bulb without stenosis. Right external carotid artery: No occlusion or stenosis of the origin.Left common carotid artery: There is mild stenosis due to mixed plaque at the origin of the left common carotid artery. No hemodynamically significant stenosis or occlusion. Left internal carotid artery: No stenosis of the extracranial segment. No dissection or occlusion. Left external carotid artery: No occlusion or stenosis of the origin. Right vertebral artery: No stenosis. No dissection or occlusion. Left vertebral artery: Mild stenosis seen at the origin of the left vertebral artery due to mixed plaque. Rest of the vessel unremarkable. Teeth: Patient is edentulous. Soft tissues: Normal. No significant soft tissue swelling. Bones/joints: Degenerative changes in the spine. IMPRESSION: No large vessel occlusion or hemodynamically significant stenosis. PROCEDURE INFORMATION: Exam: CTA Chest With Contrast CTA Abdomen and Pelvis With Contrast Exam date and time: 06/03/2025 10:13 PM Age: 65 years old Clinical indication: Other: Unspecified; Other: Chest pain, dizziness adn seziure TECHNIQUE: Imaging protocol: Computed tomographic angiography of the chest with contrast. Exam focused on the arteries. Computed tomographic angiography of the abdomen and pelvis with contrast. Exam focused on the arteries. 3D rendering (Not supervised by radiologist): MIP and/or 3D reconstructed images were created by the technologist. COMPARISON: CR XR PORTABLE CHEST AP 06/03/2025 9:28 PM FINDINGS: VASCULATURE: Pulmonary arteries: No acute pulmonary embolus. Aorta: The aorta demonstrates normal course and caliber. No aortic dissection. No aneurysmal dilatation. Scattered atheromatous calcifications are present within the infrarenal abdominal aorta. Celiac trunk and mesenteric arteries: No occlusion or significant stenosis. Renal arteries: The origin of the left renal artery is just superior to the aortic bifurcation. Right iliac arteries: A moderate grade stenosis is present at the origin of the right common iliac artery. Left iliac arteries: A mild stenosis is present at the origin of the left common iliac artery. CHEST: Lungs: Mild atelectasis is present at the dependent right lung base. The lungs are otherwise clear. Pleural spaces: No pleural effusion or pneumothorax. Heart: Heart is normal size. No pericardial effusion. ABDOMEN AND PELVIS: Liver: The liver has a normal appearance. Gallbladder and biliary ducts: The gallbladder is unremarkable. No biliary ductal dilatation. Pancreas: The pancreas demonstrates normal size. No pancreatic ductal dilatation. Spleen: The spleen demonstrates normal size. Adrenal glands: The adrenal glands have a normal appearance. Kidneys and ureters: The right kidney demonstrates normal size and enhancement. No right hydronephrosis, nephrolithiasis, hydroureter, or ureterolithiasis. The left kidney is visualized within the left hemipelvis. No left hydronephrosis, nephrolithiasis, hydroureter, or ureterolithiasis. Stomach and bowel: The bowel demonstrates overall normal caliber and wall thickness. Appendix: The appendix is thin walled. Intraperitoneal space: Unremarkable. No free air. No significant fluid collection. Urinary bladder: The bladder is filled with contrast. There is a questionable soft tissue nodule along the posterior wall of the bladder which measures 1.1 cm in diameter (series 14/image 258). Reproductive: Unremarkable as visualized. Lymph nodes: No enlarged lymph nodes. Bones/joints: Bones have a normal appearance. No acute fracture or suspicious bone lesion. 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 Soft tissues: There is a small fat containing left inguinal hernia. Other findings: . IMPRESSION: 1. No pulmonary embolus. 2. No acute intra-abdominal findings. Normal appendix. 3. No aortic dissection. 4. Questionable bladder wall mass as above. Neoplasm can not be excluded. If further characterization is warranted, direct visualization is recommended. Related Data Home Medications ?Medication ?Instructions ?Recorded ?Confirmed multivitamin (Daily Multi-Vitamin 1 ea PO DAILY 12/23/16 06/03/25 tablet) divalproex 250 mg tablet,delayed 500 mg PO BID 11/14/18 06/03/25 release (Depakote) lactulose 20 gram/30 mL oral 20 gm (30 mL) PO QID PRN 11/29/18 06/03/25 solution constipation #600 mL acetaminophen 325 mg tablet 500 mg PO Q4H PRN pain 12/02/18 06/03/25 ondansetron 4 mg disintegrating 4 mg PO Q8H PRN nausea and vomiting 12/02/18 06/03/25 tablet clonazepam 1 mg tablet 1 mg PO TID PRN anxiety #90 02/13/19 06/03/25 tab-caps aspirin 81 mg tablet,delayed 81 mg PO DAILY 06/03/25 06/03/25 release (Adult Low Dose Aspirin) omeprazole 40 mg capsule,delayed 40 mg PO BID 06/03/25 06/03/25 release Previous Rx's ?Medication ?Instructions ?Recorded lactulose 20 gram/30 mL oral 20 gm (30 mL) PO QID PRN 11/29/18 solution constipation #600 mL clonazepam 1 mg tablet 1 mg PO TID PRN anxiety #90 02/13/19 tab-caps Allergies Allergy/AdvReac Type Severity Reaction Status Date / Time amitriptyline Allergy Unknown SEDATION,ra Verified 06/03/25 20:27 sh ranitidine AdvReac Intermediate chest pain Verified 06/03/25 20:27 acetaminophen (From Vicodin) AdvReac Mild 11/11/17 Verified 06/03/25 20:27 chest pain upset stomach bisoprolol AdvReac Mild fatigue Verified 06/03/25 20:27 hydrocodone bitartrate (From AdvReac Mild 11/11/17 Verified 06/03/25 20:27 Vicodin) chest pain upset stomach nicotine polacrilex (From AdvReac Mild Skin Rash Verified 06/03/25 20:27 Nicorette) oxycodone AdvReac lowers his Verified 06/03/25 20:27 blood pressure and oxygen level as per pt General Stated Complaint: Seizure DEVEN: 2 Course Vital Signs Vital signs: Vital Signs Temperature 36.7 C 06/03/25 20:14 Pulse 81 06/03/25 20:14 Respiratory Rate 20 06/03/25 20:14 Blood Pressure 145/81 H 06/03/25 20:14 Pulse Oximetry 98 06/03/25 20:14 Temperature 36.7 C 06/03/25 20:14 Temperature Source Oral 06/03/25 20:14 Pulse 81 06/03/25 20:14 Respiratory Rate 20 06/03/25 20:14 Respiratory Effort Normal, Non-Labored 06/03/25 20:49 Respiratory Depth Normal 06/03/25 20:49 Respiratory Pattern Normal 06/03/25 20:49 Blood Pressure 145/81 H 06/03/25 20:14 Blood Pressure Position Sitting 06/03/25 20:14 Pulse Oximetry 98 06/03/25 20:14 Oxygen Delivery Method Room Air 06/03/25 20:14 Oxygen Flow Rate 0 06/03/25 20:14 PFSH All Active Problems (Updated 06/03/25 @ 23:12 by Cameron Maxwell MD) Abnormal radiologic findings on diagnostic imaging of renal pelvis, ureter, or bladder (Acute) Seizure secondary to subtherapeutic anticonvulsant medication (Acute) Seizure (Acute) Dermatitis (Acute 10/20/11) ALVARO positive (Acute) 02/19/19 Dr Barker at [facility] Mild chronic obstructive pulmonary disease (Chronic) Fatigue (Chronic) Lazy eye of right side (Chronic) Memory deficit (Chronic) S/P clamping of cerebral aneurysm (Chronic) Urgency of micturition (Acute 06/26/16) Tobacco dependence due to chewing tobacco (Acute 10/11/81) Long history SINCE 1973 1.5 PPD, >50 PACK YRS; BEST 5 MOS OFF 2002 Tinnitus, bilateral (Acute 12/16/17) Temporal lobe epilepsy, intractable [facility]Acute [facility]25/16[facility] Dr Amin 05/30/07, also somatization and conversion disorder. 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 Polyp of cecum (Acute 01/21/17) 3mm,sessile,removed via cold forceps biopsies and sent to pathology. GLADYS (obstructive sleep apnea) (Acute 02/22/18) Numbness and tingling of left side of face (Acute 09/03/17) Malaise (Acute 12/24/15) Hiatal hernia (Acute 01/06/18) 3 cm 01/05/18 [facility] [place] [facility] Jazmyn North MD Frequency of micturition (Acute 06/26/16) Esophagitis (Acute 01/21/17) Grade 2 esophagitis in distal esophagus,biopsies taken. Diffuse esophageal spasm (Acute 04/09/17) Chronic airway obstruction (Acute 05/08/14) PFTs 08/2016 showing mild obstruction, chest CT also showing changes c/w COPD Adjustment disorder with anxiety (Acute 06/16/16) Adenomatous polyp of descending colon (Acute 01/21/17) 3mm,sessile, removed via cold forceps biopsy and sent to pathology Disequilibrium (Chronic) Chest pain, atypical (Acute) Seizure disorder (Chronic) Smoking (Chronic) Chronic anxiety (Chronic) GERD (gastroesophageal reflux disease) (Chronic) Low magnesium levels (Chronic) a. due to Omeprazole Edentulism (Chronic) Chest pain (Acute) Medical History (Updated 06/03/25 @ 23:12 by Cameron Maxwell MD) Palliative care patient (12/10/16) Followed by Dr. Madison Tobacco use disorder Seizure disorder Nonerosive esophageal reflux disease Surgical History S/P orchiectomy colonoscopy with cold biopsy (01/21/17) Dr. Jerry JOYA Removal of foreign body (02/09/10) glass fragment R elbow, [facility] [place] Repair of inguinal hernia (10/10/1967) RIGHT EGD (01/21/17) with biopsies, Dr. Jerry JOYA Family History Grandmother Diabetes Mother No problems noted. Father No problems noted. Social History Smoking/Tobacco Use Status: Current every day Tobacco Type: cigarettes Tobacco: How many years used: 45 Quit status: considering quitting Second Hand Exposure: No Counseling given: counseling >3 minutes Smoking risk assessment performed?: Yes Alcohol Intake: former Drug use: Never Substance use type: does not use Caregiver/Support person: Yes Household members: spouse and children Housing: apartment Number of Children: 3 Education Level: high school Do you need help understanding health information?: Often Pets and animals: No What is your relationship status?: How often do you talk on the phone with friends or family?: once per week How often do you get together with friends or relatives?: once per week Panel score (0-1 are the most socially isolated patients): 1 What type of physical activity do you participate in: walking and occasional exercise Special alicia needs: No Agree to transfusion: Yes Working smoke detector in home: Yes Fire extinguisher in home: Yes Do you feel safe at home: Yes Do you feel safe in your relationship?: Yes Additional Social history: really hates where he lives wants to move into place where he has room to work on cars, [place], be outside more
[2025-06-03 21:25] LABS: Glucose Negative (Negative)
[2025-06-03 21:26] LABS: Abs Immature Grans 0.02 10^3/uL (0.0-0.06); HCT 43.2 % (40.0-50.0); HGB 14.6 g/dL (13.5-17.5); Immature Grans % 0.3 %; MCH 31.2 pg (27.0-33.0); MCHC 33.8 % (32.0-36.0); MCV 92 fL (80-95); MPV 10.6 fL (8.0-11.0); Platelet Count 240 10^3/uL (130-400); RBC 4.68 10^6/uL (4.36-5.78); RDW 13.0 % (11.8-14.1); RDW-SD 44.0 fL; WBC 6.99 10^3/uL (4.4-10.8)
[2025-06-03 21:40] LABS: INR 1.0 (0.9-1.1); PTT Activated 27.4 sec (20.6-30.2); Prothrombin Time 9.8 sec (9.1-11.1)
[2025-06-03 21:49] LABS: ALT 22 U/L (16-63); AST 14 U/L (15-37); Albumin 3.5 g/dL (3.4-5.0); Alkaline Phosphatase 84 U/L (46-116); Anion Gap 10.1 mmol/L (3-11); BUN 10 mg/dL (7-18); Bilirubin, Total 0.5 mg/dL (0.2-1.0); CO2 25.9 mmol/L (21.0-32.0); Calcium 9.5 mg/dL (8.5-10.1); Chloride 104 mmol/L (98-107); Estimated GFR 84.57 (mL/min/1.73m2); Glucose 99 mg/dL (74-106); Magnesium 2.0 mg/dL (1.8-2.4); NT-proBNP 40 pg/mL (<300); Potassium 3.8 mmol/L (3.5-5.1); Sodium 140 mmol/L (136-145); Total Protein 7.8 g/dL (6.4-8.2); Troponin I 5 ng/L (<or=76)
[2025-06-03 21:59] LABS: Troponin I 6 ng/L (<or=76)
--- NOTE | 2025-06-03 22:00 | DI.CT_ITS ---
Exam(s) CT THORAX ABD/PEL CTA EXAM: CT THORAX ABD/PEL CTA CLINICAL HISTORY: Chest pain, dizziness adn seziure. TECHNIQUE: Imaging Protocol: Axial CT angiography was performed with multi- slice acquisition and multi-planar and/or 3D reconstructions. Lung Computer Aided Detection (CAD) was utilized. CONTRAST MATERIAL: Intravenous: Omnipaque 350 contrast volume:100 mL Oral: No COMPARISON: CT CHEST FOR PULMONARY EMBOLUS from 09/17/2016 CT ABD PELVIS WITH CONTRAST from 09/09/[address] ABDOMEN PELVIS W from 11/28/2018 FINDINGS: CHEST: Tracheobronchial tree: Patent where visualized. There is no evidence of bronchiectasis. Pulmonary parenchyma: No consolidation or dominant measurable mass. No architectural distortion. There is mild dependent atelectasis present. Pulmonary Arteries: No evidence of filling defect to suggest pulmonary emboli. Mediastinum and Karlee: No dominant adenopathy or fluid collection. The esophagus is unremarkable. Visualized thyroid: Unremarkable. Pleura: No effusion or pneumothorax. Heart: The heart is not dilated. Mild coronary artery calcification is present. No pericardial effusion. Aorta: Thoracic aorta non-dilated. There is no evidence of dissection. Soft Tissues: There is mild gynecomastia. Bones: Within normal limits for the patient's age. ABDOMEN AND PELVIS: Abdomen: Celiac axis/mesenteric arteries: No evidence of occlusion or significant stenosis. Renal Arteries: No evidence of occlusion or significant stenosis. Aorta: No evidence of occlusion or significant stenosis. No aneurysm or dissection. Atherosclerotic calcification is present. Pelvis: Iliac Arteries: There is atherosclerotic calcification present. There is mild narrowing of the common iliac arteries. There is no occlusion. Common Femoral Arteries: Atherosclerotic calcification is present. No occlusion or significant stenosis is present. ABDOMEN: Liver: Normal density. No measurable mass. Portal, superior mesenteric and splenic veins: Unremarkable. Gallbladder and Biliary Tract: No radiodense calculus or dilation. Pancreas: Normal density, no abnormal calcifications or inflammatory process. Spleen: Normal. Adrenals: No masses seen. Kidneys: Normal size, contour and axis. 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 There is no evidence of nephrolithiasis or hydronephrosis. No masses seen. Bowel: There are diverticula seen in the colon, but no evidence of acute diverticulitis. There is no evidence of bowel obstruction or bowel wall thickening. There is no evidence of pneumatosis. The stomach is incompletely distended limiting evaluation. Appendix is unremarkable. Peritoneal Cavity: No ascites, collection or mesenteric inflammatory response. No free air. Lymph Nodes: Within normal limits. Bones: Within normal limits for the patient's age. There is L5 spondylolysis without evidence of spondylolisthesis. There are 5 now findings most suggestive of avascular necrosis of the right femoral head. There is mild volume loss present. Soft Tissues: There is a small fat containing left inguinal hernia. PELVIS: Bladder: There is soft tissue thickening along the posterior urinary bladder measuring 1.9 x 0.9 cm. (Series 24, image 68). A bladder mass or prostatic mass should be considered. Reproductive Organs: Please see the above discussion under urinary bladder. Lymph Nodes: Within normal limits. Bones: Within normal limits for the patient's age. IMPRESSION: 1. There is no evidence of an abdominal aortic dissection or aneurysm. 2. 1.9 x 0.9 cm soft tissue irregularity along the posterior urinary bladder. This may represent a bladder mass or prostatic mass. Urology consult is recommended. 3. Avascular necrosis of the right femur. 4. Colonic diverticulosis but no evidence of acute diverticulitis. 5. There is no evidence of a pulmonary embolism, thoracic aortic dissection or aneurysm. 6. There is no acute pulmonary process. 7. The preliminary [facility] report was reviewed. RADIATION DOSE DELIVERED: 1,313.89mGy.cm Total DLP DATA REPOSITORY: All CT scans at this facility are submitted to the National Radiology Data Registry (NRDR) Dose Index Registry (DIR) with the [employer] (ACR). RADIATION OPTIMIZATION: All CT scans at this facility use at least one of these dose optimization techniques: automated exposure control; mA and/or kV adjustment per patient size (includes targeted exams where dose is matched to clinical indication); or iterative reconstruction.
[2025-06-03] MEDS: Omnipaque 350 MG/ML 100 ML BTL IJ ×2 (22:01→22:24)
[2025-06-03] MEDS: Normal Saline - Diluent 50 ML VIAL IJ ×2 (22:01→22:24)
--- NOTE | 2025-06-03 22:18 | DI.[facility]_ITS ---
PROCEDURE INFORMATION: Exam: XR Chest Exam date and time: 06/03/2025 9:28 PM Age: 65 years old Clinical indication: Other: Dizziness TECHNIQUE: Imaging protocol: Radiologic exam of the chest. Views: 1 view. COMPARISON: CR XR PORTABLE CHEST AP 03/22/2019 10:13 AM FINDINGS: Lungs: Linear atelectasis at the left lung base. No infiltrate. Pleural spaces: Unremarkable. No pleural effusion. No pneumothorax. Heart/Mediastinum: Unremarkable. No cardiomegaly. Bones/joints: Unremarkable. IMPRESSION: No acute findings. Dictated and Authenticated by: Kimberly Egan MD. Orderin Hans Barnes MD
--- NOTE | 2025-06-03 22:38 | DI.[facility]_ITS ---
PROCEDURE INFORMATION: Exam: CTA Head Without And With Contrast, Arteriography Exam date and time: 06/03/2025 10:01 PM Age: 65 years old Clinical indication: Dizziness and giddiness TECHNIQUE: Imaging protocol: Computed tomographic angiography of the head without and with contrast. Exam focused on the arteries. 3D rendering (Not supervised by radiologist): MIP and/or 3D reconstructed images were created by the technologist. COMPARISON: CT - Vascular^CTA HEAD (Adult) 07/21/2018 1:10 PM FINDINGS: ANTERIOR CIRCULATION: Right internal carotid artery: Mild calcified plaque is seen in the right supraclinoid internal carotid artery with mild stenosis. Right middle cerebral artery: No occlusion or significant stenosis. No aneurysm. Right anterior cerebral artery: No occlusion or significant stenosis. No aneurysm. Left internal carotid artery: Mild calcified plaque is seen in the left supraclinoid internal carotid artery with mild stenosis. Left middle cerebral artery: No occlusion or significant stenosis. No aneurysm. Left anterior cerebral artery: No occlusion or significant stenosis. No aneurysm. POSTERIOR CIRCULATION: Right vertebral artery: No occlusion or significant stenosis. No aneurysm. Left vertebral artery: No occlusion or significant stenosis. No aneurysm. Basilar artery: No occlusion or significant stenosis. No aneurysm. Right posterior cerebral artery: No occlusion or significant stenosis. No aneurysm. Left posterior cerebral artery: No occlusion or significant stenosis. No aneurysm. Veins: Dural venous sinuses are unremarkable. HEAD: Brain: Two aneurysm clips are seen in the right sylvian fissure . No abnormal intracranial enhancement. Cerebral ventricles: Normal. No ventriculomegaly. Bones: Mild generalized the volume loss. For holes are seen in the right frontal bone. Right frontotemporal craniotomy. Paranasal sinuses: Visualized sinuses are normal. No fluid levels. Mastoid air cells: Small amount of fluid is seen in the inferior left mastoid sinus similar to the prior study Soft tissues: Unremarkable. IMPRESSION: No large vessel occlusion, hemodynamically significant stenosis or aneurysm. 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 Small chronic left mastoid sinus effusion. PROCEDURE INFORMATION: Exam: CTA Neck Without And With Contrast Exam date and time: 06/03/2025 10:01 PM Age: 65 years old Clinical indication: Dizziness and giddiness TECHNIQUE: Imaging protocol: Computed tomographic angiography of the neck without and with contrast. Exam focused on the cervical segments of the vasculature. 3D rendering (Not supervised by radiologist): MIP and/or 3D reconstructed images were created by the technologist. COMPARISON: CT - Vascular^CTA HEAD (Adult) 07/21/2018 1:10 PM FINDINGS: Right common carotid artery: No stenosis. No dissection or occlusion. Right internal carotid artery: Mild calcified plaque is seen in the right carotid bulb without stenosis. Right external carotid artery: No occlusion or stenosis of the origin. Left common carotid artery: There is mild stenosis due to mixed plaque at the origin of the left common carotid artery. No hemodynamically significant stenosis or occlusion. Left internal carotid artery: No stenosis of the extracranial segment. No dissection or occlusion. Left external carotid artery: No occlusion or stenosis of the origin. Right vertebral artery: No stenosis. No dissection or occlusion. Left vertebral artery: Mild stenosis seen at the origin of the left vertebral artery due to mixed plaque. Rest of the vessel unremarkable. Teeth: Patient is edentulous. Soft tissues: Normal. No significant soft tissue swelling. Bones/joints: Degenerative changes in the spine. IMPRESSION: No large vessel occlusion or hemodynamically significant stenosis REFERENCES: NASCET CRITERIA. The degree of stenosis in the cervical segment of the internal carotid artery is based on NASCET criteria. Normal is no stenosis. Mild is less than 50% stenosis. Moderate is 50-69% stenosis. Severe is 70% to 99% stenosis. Total occlusion is no detectable patent lumen. Dictated and Authenticated by: Kimberly Egan MD. Orderin Hans Barnes MD
--- NOTE | 2025-06-03 23:00 | DI.[facility]_ITS ---
PROCEDURE INFORMATION: Exam: CTA Chest With Contrast CTA Abdomen and Pelvis With Contrast Exam date and time: 06/03/2025 10:13 PM Age: 65 years old Clinical indication: Other: Unspecified; Other: Chest pain, dizziness adn seziure TECHNIQUE: Imaging protocol: Computed tomographic angiography of the chest with contrast. Exam focused on the arteries. Computed tomographic angiography of the abdomen and pelvis with contrast. Exam focused on the arteries. 3D rendering (Not supervised by radiologist): MIP and/or 3D reconstructed images were created by the technologist. COMPARISON: CR XR PORTABLE CHEST AP 06/03/2025 9:28 PM FINDINGS: VASCULATURE: Pulmonary arteries: No acute pulmonary embolus. Aorta: The aorta demonstrates normal course and caliber. No aortic dissection. No aneurysmal dilatation. Scattered atheromatous calcifications are present within the infrarenal abdominal aorta. Celiac trunk and mesenteric arteries: No occlusion or significant stenosis. Renal arteries: The origin of the left renal artery is just superior to the aortic bifurcation. Right iliac arteries: A moderate grade stenosis is present at the origin of the right common iliac artery. Left iliac arteries: A mild stenosis is present at the origin of the left common iliac artery. CHEST: Lungs: Mild atelectasis is present at the dependent right lung base. The lungs are otherwise clear. Pleural spaces: No pleural effusion or pneumothorax. Heart: Heart is normal size. No pericardial effusion. ABDOMEN AND PELVIS: Liver: The liver has a normal appearance. Gallbladder and biliary ducts: The gallbladder is unremarkable. No biliary ductal dilatation. Pancreas: The pancreas demonstrates normal size. No pancreatic ductal dilatation. Spleen: The spleen demonstrates normal size. Adrenal glands: The adrenal glands have a normal appearance. Kidneys and ureters: The right kidney demonstrates normal size and enhancement. No right hydronephrosis, nephrolithiasis, hydroureter, or ureterolithiasis. The left kidney is visualized within the left hemipelvis. No left hydronephrosis, nephrolithiasis, hydroureter, or ureterolithiasis. Stomach and bowel: The bowel demonstrates overall normal caliber and wall thickness. Appendix: The appendix is thin walled. Intraperitoneal space: Unremarkable. No free air. No significant fluid collection. Urinary bladder: The bladder is filled with contrast. There is a questionable soft tissue nodule along the posterior wall of the bladder which measures 1.1 cm in diameter (series 14/image 258). Reproductive: Unremarkable as visualized. Lymph nodes: No enlarged lymph nodes. Bones/joints: Bones have a normal appearance. No acute fracture or suspicious bone lesion. 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 Soft tissues: There is a small fat containing left inguinal hernia. Other findings: . IMPRESSION: 1. No pulmonary embolus. 2. No acute intra-abdominal findings. Normal appendix. 3. No aortic dissection. 4. Questionable bladder wall mass as above. Neoplasm can not be excluded. If further characterization is warranted, direct visualization is recommended. Dictated and Authenticated by: Leslie Miller MD. Orderin Hans Barnes MD
== END 2025-06-03 23:44 | disposition home or self-care (01) ==
PROVIDERS: Emergency Provider General Practice
DX: R56.9 Unspecified convulsions (principal); Z79.899 Other long term (current) drug therapy; R93.41 Abnormal radiologic findings on diagnostic imaging of renal pelvis, ureter, or bladder; R42 Dizziness and giddiness; R07.89 Other chest pain; I10 Essential (primary) hypertension; Z72.0 Tobacco use; Z86.79 Personal history of other diseases of the circulatory system
CPT/HCPCS: 99284; 99285; 36415; 70496; 70498; 71275; 80053; 93005; 71045; 74174; 80164; 81003; 83735; 83880; 84484; 85025; 85610; 85730; 93010; J3490